=== PATIENT | female | born 1940 | race Caucasian/White ===

== ENCOUNTER 2017-05-28 13:56 | Inpatient (IN) | payer OTHER ==
[2017-05-28] MEDS: LASIX IVP SCH ×2 (15:45→20:21)
[2017-05-28] MEDS ORDERED: PROVENTIL NEB TX 0.083% 2.5MG/ 3ML ONE (15:59)
--- NOTE | 2017-05-28 16:09 | RAD ---
HISTORY: Shortness of breath, CHF, cough Study: Single view chest Comparison:None Findings: Single portable view is submitted. There is a left chest wall pacemaker/ICD. No infiltrate, effusion or pneumothorax identified. Heart size is within normal limits. There are calcifications at the aorti c arch. The soft tissues are unremarkable. IMPRESSION: 1. No acute cardiopulmonary abnormality. Reported By:
[2017-05-28] MEDS: PROVENTIL NEB TX 0.083% 2.5MG/ 3ML NEB SCH ×2 (16:12→21:55)
[2017-05-28 16:16] LABS: BLOOD UREA NITROGEN 29 mg/dL (7-18); CARBON DIOXIDE 34.9 mmol/L (21-32); CHLORIDE 104 mmol/L (98-107); CREATININE 1.46 mg/dL (0.55-1.02); SODIUM 141 mmol/L (136-145); TROPONIN I 0.02 ng/mL (0-1.5); eGFR BLACK RACES 45 (>60); eGFR NON BLACK RACES 37 (>60)
[2017-05-28 16:22] VITALS: BMI 41.3
[2017-05-28 16:22] LABS: ALANINE AMINOTRANSFERASE 29 Units/L (12-78); ALBUMIN 2.9 g/dL (3.4-5.0); ALKALINE PHOSPHATASE 55 Units/L (46-116); ASPARTATE AMINO TRANSFERASE 15 Units/L (15-37); CKMB % 3.3 % (<4); COR CA(FOR HYPOALB) 8.9 mg/dL (8.5-10.1); CREATINE KINASE 43 Units/L (26-192); CREATINE KINASE MB 1.4 ng/mL (0-4.0); TOTAL PROTEIN 6.9 g/dL (6.4-8.2)
[2017-05-28 16:57] LABS: BILIRUBIN,URINE NEGATIVE (NEGATIVE); BLOOD/HEMOGLOBIN,URINE 1+ (NEGATIVE); GLUCOSE, URINE NEGATIVE (NEGATIVE); KETONES,URINE NEGATIVE (NEGATIVE); LEUKOCYTE ESTERASE ,URINE 3+ (NEGATIVE); NITRITES,URINE NEGATIVE (NEGATIVE); PROTEIN,URINE NEGATIVE (NEGATIVE); UROBILINOGEN,URINE NORMAL (NORMAL)
[2017-05-28 17:06] LABS: APPEARANCE,URINE HAZY (CLEAR); COLOR,URINE YELLOW (YELLOW)
[2017-05-28 17:07] LABS: BACTERIA,URINE TRACE /HPF (NEGATIVE); RBC,URINE 0-2 /HPF (NONE SEEN); SQUAMOUS EPITHELIAL CELL,UR RARE /HPF (NEGATIVE)
[2017-05-28] MEDS ORDERED: BENTYL CAP 10 MG PO PRN (18:42)
[2017-05-28] MEDS ORDERED: ALENDRONATE SODIUM 70 MG PO SCH (18:45)
[2017-05-28] MEDS: ROCEPHIN VIAL 1 GM 1 GM in NS 100 ML IV + SPIKE MINIBAG* 100 ML IV SCH (19:42)
[2017-05-28] MEDS: ASPIRIN EC 81 MG PO SCH (19:42)
[2017-05-28] MEDS: FLONASE NASAL SPRAY ENOSTRIL SCH (20:20)
[2017-05-28] MEDS: NS 100 ML IV 100 ML IV SCH (20:20)
[2017-05-28] MEDS: K-DUR TAB 20 MEQ PO SCH (20:21)
[2017-05-28] MEDS: NEURONTIN CAP 100 MG PO SCH (20:22)
[2017-05-28] MEDS: REQUIP PO SCH (20:22)
[2017-05-28] MEDS: ZOCOR TAB 40 MG PO SCH (20:23)
[2017-05-28] MEDS: FLEXERIL TAB 10 MG PO SCH (20:23)
[2017-05-28] MEDS: RESTORIL CAP 30 MG PO SCH (20:25)
[2017-05-28] MEDS ORDERED: [UNRECOGNIZED DRUG - OTHER] PO SCH (21:00)
[2017-05-28] MEDS: CREON PO SCH (21:00)
[2017-05-28] MEDS ORDERED: ROPINIROLE HCL 3 MG PO SCH (21:00)
[2017-05-28] MEDS ORDERED: AMYLASE PO SCH (21:00)
[2017-05-28] MEDS ORDERED: PROTEASE PO SCH (21:00)
[2017-05-28] MEDS ORDERED: LIPASE PO SCH (21:00)
[2017-05-28 21:41] LABS: CKMB % 2.6 % (<4); CREATINE KINASE 42 Units/L (26-192); CREATINE KINASE MB 1.1 ng/mL (0-4.0); TROPONIN I < 0.02 ng/mL (0-1.5)
[2017-05-28] MEDS: PULMICORT NEB TX 0.5 MG NEB SCH (21:55)
[2017-05-29 01:35] LABS: CKMB % 2.8 % (<4); CREATINE KINASE 40 Units/L (26-192); CREATINE KINASE MB 1.1 ng/mL (0-4.0); TROPONIN I < 0.02 ng/mL (0-1.5)
[2017-05-29] MEDS: NS 100 ML IV 100 ML IV SCH ×5 (05:26→16:10)
[2017-05-29 05:28] LABS: BASOPHILS # (AUTO) 0.1 X10^3/uL (0.0-0.1); EOSINOPHILS # (AUTO) 0.3 x10^3/uL (0.0-0.2); EOSINOPHILS % (AUTO) 4.9 % (0.9-2.9); HEMATOCRIT 30.5 % (36.0-47.0); HEMOGLOBIN 10.2 g/dL (12.0-16.0); LYMPHOCYTES # (AUTO) 2.5 X10^3/uL (1.3-2.9); LYMPHOCYTES % (AUTO) 35.1 % (21.0-51.0); MEAN CORPUSCULAR HEMOGLOBIN 29.6 pg (27.0-34.0); MEAN CORPUSCULAR HGB CONC 33.5 g/dL (33.0-35.0); MEAN CORPUSCULAR VOLUME 88.3 fL (80.0-100.0); MEAN PLATELET VOLUME 7.4 fL (7.4-11.0); MONOCYTES # (AUTO) 0.6 x10^3/uL (0.3-0.8); MONOCYTES % (AUTO) 8.9 % (0.0-13.0); NEUTROPHILS # (AUTO) 3.5 x10^3/uL (2.2-4.8); NEUTROPHILS % (AUTO) 50.1 % (42.0-75.0); PLATELET COUNT 198 X10^3/uL (150.0-450.0); RED BLOOD COUNT 3.45 X10^6/uL (3.5-5.4); RED CELL DISTRIBUTION WIDTH 13.8 % (11.6-16.5); WHITE BLOOD COUNT 7.1 X10^3/uL (3.6-10.0)
[2017-05-29 05:41] LABS: ALBUMIN 2.9 g/dL (3.4-5.0); CALCIUM 8.1 mg/dL (8.5-10.1); CARBON DIOXIDE 36.6 mmol/L (21-32); CREATININE 1.33 mg/dL (0.55-1.02); TOTAL PROTEIN 6.9 g/dL (6.4-8.2)
[2017-05-29] MEDS ORDERED: K-LYTE EFFERVESCENT PO PRN (05:50)
[2017-05-29] MEDS ORDERED: K-RIDER 10 MEQ/NS 100 ML 10 MEQ/100 ML BAG IV PRN (05:50)
[2017-05-29] MEDS ORDERED: POTASSIUM CHLORIDE LIQ 20 MEQ UDC PO PRN (05:50)
[2017-05-29] MEDS: POTASSIUM CHL 60 MEQ/NS 0.45% 500 ML IV PRN (06:28)
--- NOTE | 2017-05-29 07:46 | RAD ---
HISTORY: Shortness of breath Study: Chest AP portable Comparison: 05/28/2017 Findings: There is a pacemaker present on the left. The heart is within normal limits in size. The lilliam are nor mal. The lung sofia are clear. The bony thorax is unremarkable. IMPRESSION: No significant abnormality identified Reported By:
[2017-05-29] MEDS ORDERED: ALLEGRA ONE (08:18)
[2017-05-29] MEDS: FLONASE NASAL SPRAY ENOSTRIL SCH ×2 (08:24→21:29)
[2017-05-29] MEDS: ROCEPHIN VIAL 1 GM 1 GM in NS 100 ML IV + SPIKE MINIBAG* 100 ML IV SCH (08:25)
[2017-05-29] MEDS: CREON PO SCH ×2 (08:27→21:29)
[2017-05-29] MEDS: FLEXERIL TAB 10 MG PO SCH ×2 (08:28→21:25)
[2017-05-29] MEDS: ASPIRIN EC 81 MG PO SCH (08:28)
[2017-05-29] MEDS: SYNTHROID 25 mcg TAB PO SCH (08:28)
[2017-05-29] MEDS: ALLEGRA PO SCH (08:28)
[2017-05-29] MEDS: FERROUS GLUCONATE PO SCH (08:29)
[2017-05-29] MEDS: PROTONIX TAB 40 MG PO SCH (08:29)
[2017-05-29] MEDS: LASIX IVP SCH ×2 (08:30→21:26)
[2017-05-29] MEDS: K-DUR TAB 20 MEQ PO SCH ×2 (08:31→21:25)
[2017-05-29] MEDS: ZAROXOYLN PO SCH (08:37)
[2017-05-29] MEDS: PROVENTIL NEB TX 0.083% 2.5MG/ 3ML NEB SCH ×4 (08:59→21:51)
[2017-05-29] MEDS: PULMICORT NEB TX 0.5 MG NEB SCH ×2 (08:59→21:51)
[2017-05-29] MEDS ORDERED: PATIENT'S HOME MEDICATION (Ferrous Sulfate [Ferrous Sulfate] 325 MG) PO SCH (09:00)
[2017-05-29] MEDS ORDERED: XOPENEX 1.25 MG/3 ML NEBULE NEB SCH (09:45)
[2017-05-29] MEDS ORDERED: NS 250 ML IV 250 ML IV ONE (10:34)
[2017-05-29] MEDS: NS 250 ML IV 250 ML IV SCH (10:40)
[2017-05-29] MEDS: SOLU-Medrol 40 MG VIAL IVP SCH ×3 (10:40→21:37)
[2017-05-29] MEDS: FORTAZ or TAZICEF INJ 1 GM in NS 100 ML IV + SPIKE MINIBAG* 100 ML IV SCH ×3 (10:41→21:37)
[2017-05-29] MEDS: MUCINEX DM PO SCH ×2 (10:43→21:27)
[2017-05-29] MEDS: LEVAQUIN PREMIX IV 750 MG 750 MG/150 ML BAG IV SCH (11:36)
--- NOTE | 2017-05-29 12:51 | DR.UPDATE ---
H&P Update History and Physical Update: WAS SEEN IN THE OFFICE TODAY. A H&P WAS COMPLETED PRIOR TO ADMISSION. PATIENT HAS BEEN SEEN AND EXAMINED WITH NO CHANGES NOTED TO H&P. Changes noted: NO Yes with the following:
--- NOTE | 2017-05-29 13:07 | PCM.PROG ---
Progress Note - Progress Note for Day of Date: 05/29/17 - Subjective Subjective: WAS ADMITTED FOR TREATMENT OF CONGESTIVE HEART FAILURE AND A URINARY TRACT INFECTION. TODAY, SHE IS ALERT AND ORIENTED, SITTING UP IN BED ON MORNING ROUNDS. SHE IS NOTED WITH COMPLAINTS OF A NON-PRODUCTIVE COUGH AND SHORTNESS OF BREATH. ON EXAMINATION, HEART IS REGULAR IN RATE AND RHYTHM. BILATERAL LUNGS ARE NOTED WITH EXPIRATORY WHEEZING AND RALES. SHE IS CURRENTLY UTILIZING OXYGEN VIA NASAL CANNULA AT 2L/MIN. ABDOMEN IS ROUND, SOFT, AND NON- TENDER WITH NORMAL BOWEL SOUNDS NOTED IN ALL QUADRANTS. THERE IS 1+ PITTING EDEMA NOTED TO BILATERAL LOWER EXTREMITIES. NORMAL RANGE OF MOTION NOTED. HER VITALS THIS MORNING ARE 98.2-90-23-99%-149/67. LABS WERE OBTAINED. ABNORMAL LAB VALUES INCLUDE THE FOLLOWING: RBC 3.45, HGB 10.2, HCT 30.5, POTASSIUM 2.7, CARBON DIOXIDE 36.6, BUN 27, CREATININE 1.33, GLUCOSE 119, CALCIUM 8.1, MAGNESIUM 1.5, AST 14, ALBUMIN 2.9. A URINALYSIS OBTAINED ON ADMISSION REVEALED WBC 10-20, RBC 0-2, LEUKOCYTES 3+, BACTERIA TRACE. A URINE CULTURE IS PENDING. CARDIAC ENZYMES AND EKGS HAVE BEEN WITHIN NORMAL LIMITS. TODAY, WE PLAN TO DISCONTINUE ROCEPHIN AND START FORTAZ 1GM IV Q8H, AND LEVAQUIN 750MG IV DAILY. WE WILL ALSO START MUCINEX DM 1 TABLET BID, SOLU-MEDROL 20MG IV Q8H, AND CONTINUE WITH RESPIRATORY TREATMENTS FOR TREATMENT OF ACUTE BRONCHITIS. WE PLAN TO FOLLOW UP WITH AM LABS AND CHEST XRAY AND CONTINUE TO MONITOR PATIENT. - Past Medical Family Social History Past Med/Fam/Surg Hx: No changes since H&P Allergies: Allergies No Known Allergies Allergy (Verified 05/28/17 16:06) - Review of Systems ROS: No change since H&P - Vital Signs and I&O's Vital Signs: Temperature 98.1 F Pulse Rate [Apical] 86 Pulse Rate 82 Respiratory Rate 20 Blood Pressure [Right Arm] 140/70 Blood Pressure 145/72 O2 Sat by Pulse Oximetry 98 Intake and Output: Intake & Output 05/27/17 05/28/17 05/29/17 05/30/17 11:59 11:59 11:59 11:59 Intake Total 1905 Output Total 3650 Balance -1745 - Physical Exam Oriented: Normal Eyes: Normal Ear: Normal Nose: Normal Throat: Normal Respiratory: Generalized, Wheezes, Rhonchi Cardiovascular: Normal, Edema. negative: S3, S4, Murmur : Normal Auscultation: Bowel Sounds: Normal Palpation: Normal Tenderness: Normal Skin: Normal Musculoskeletal: Normal Psychiatric: Normal Mood Description: Calm Affect: Normal Speech Pattern: Clear, Appropriate - Laboratory and Diagnostics Result Diagrams: 05/29/17 04:02 05/29/17 04:02 Labs: 05/29/17 10:37 Sputum - Expectorated Sputum - Final 05/28/17 16:54 Urine,Clean Catch Urine Culture - Preliminary Laboratory WBC 7.1 X10^3/uL (3.6-10.0) 05/29/17 04:02 RBC 3.45 X10^6/uL (3.5-5.4) L 05/29/17 04:02 Hgb 10.2 g/dL (12.0-16.0) L 05/29/17 04:02 Hct 30.5 % (36.0-47.0) L 05/29/17 04:02 MCV 88.3 fL (80.0-100.0) 05/29/17 04:02 MCH 29.6 pg (27.0-34.0) 05/29/17 04:02 MCHC 33.5 g/dL (33.0-35.0) 05/29/17 04:02 RDW 13.8 % (11.6-16.5) 05/29/17 04:02 Plt Count 198 X10^3/uL (150.0-450.0) 05/29/17 04:02 MPV 7.4 fL (7.4-11.0) 05/29/17 04:02 Neut % (Auto) 50.1 % (42.0-75.0) 05/29/17 04:02 Lymph % (Auto) 35.1 % (21.0-51.0) 05/29/17 04:02 [place] % (Auto) 8.9 % (0.0-13.0) 05/29/17 04:02 Eos % (Auto) 4.9 % (0.9-2.9) H 05/29/17 04:02 Baso % (Auto) 1.0 % (0.2-1.0) 05/29/17 04:02 Neut # (Auto) 3.5 x10^3/uL (2.2-4.8) 05/29/17 04:02 Lymph # (Auto) 2.5 X10^3/uL (1.3-2.9) 05/29/17 04:02 [place] # (Auto) 0.6 x10^3/uL (0.3-0.8) 05/29/17 04:02 Eos # (Auto) 0.3 x10^3/uL (0.0-0.2) H 05/29/17 04:02 Baso # (Auto) 0.1 X10^3/uL (0.0-0.1) 05/29/17 04:02 Absolute Nucleated RBC 0.1 /100WBC 05/29/17 04:02 Sodium 143 mmol/L (136-145) 05/29/17 04:02 Corrected Sodium 143 mmol/L (136-145) 05/29/17 04:02 Potassium 2.7 mmol/L (3.5-5.1) L* 05/29/17 04:02 Chloride 100 mmol/L (98-107) 05/29/17 04:02 Carbon Dioxide 36.6 mmol/L (21-32) H 05/29/17 04:02 BUN 27 mg/dL (7-18) H 05/29/17 04:02 Creatinine 1.33 mg/dL (0.55-1.02) H 05/29/17 04:02 Est GFR (MDRD) Af Amer 50 (>60) L 05/29/17 04:02 Est GFR (MDRD) Non-Af 41 (>60) L 05/29/17 04:02 Glucose 119 mg/dL (65-99) H 05/29/17 04:02 Calcium 8.1 mg/dL (8.5-10.1) L 05/29/17 04:02 Corrected Calcium 9.0 mg/dL (8.5-10.1) 05/29/17 04:02 Magnesium 1.5 mg/dL (1.7-2.9) L 05/29/17 04:02 Total Bilirubin 0.30 mg/dL (0.2-1.0) 05/29/17 04:02 AST 14 Units/L (15-37) L 05/29/17 04:02 ALT 26 Units/L (12-78) 05/29/17 04:02 Alkaline Phosphatase 55 Units/L (46-116) 05/29/17 04:02 Creatine Kinase 40 Units/L (26-192) 05/29/17 00:50 CK-MB (CK-2) 1.1 ng/mL (0-4.0) 05/29/17 00:50 CK/CKMB % Calc 2.8 % (<4) 05/29/17 00:50 Troponin I < 0.02 ng/mL (0-1.5) 05/29/17 00:50 Total Protein 6.9 g/dL (6.4-8.2) 05/29/17 04:02 Albumin 2.9 g/dL (3.4-5.0) L 05/29/17 04:02 Globulin 4.0 g/dL (2.5-4.5) 05/29/17 04:02 Albumin/Globulin Ratio 0.7 Ratio (1.1-2.1) L 05/29/17 04:02 Specimen Type Clean catch urine 05/28/17 16:54 Urine Color Yellow (YELLOW) 05/28/17 16:54 Urine Appearance Hazy (CLEAR) 05/28/17 16:54 Urine pH 7.0 (5.0 - 8.0) 05/28/17 16:54 Ur Specific Archie 1.005 (1.000-1.030) 05/28/17 16:54 Urine Protein Negative (NEGATIVE) 05/28/17 16:54 Urine Glucose (UA) Negative (NEGATIVE) 05/28/17 16:54 Urine Ketones Negative (NEGATIVE) 05/28/17 16:54 Urine Occult Blood 1+ (NEGATIVE) 05/28/17 16:54 Urine Nitrite Negative (NEGATIVE) 05/28/17 16:54 Urine Bilirubin Negative (NEGATIVE) 05/28/17 16:54 Urine Urobilinogen Normal (NORMAL) 05/28/17 16:54 Ur Leukocyte Esterase 3+ (NEGATIVE) 05/28/17 16:54 Urine RBC 0-2 /HPF (NONE SEEN) 05/28/17 16:54 Urine WBC 10-20 /HPF (NONE SEEN) 05/28/17 16:54 Ur Squamous Epith Cells Rare /HPF (NEGATIVE) 05/28/17 16:54 Urine Bacteria Trace /HPF (NEGATIVE) 05/28/17 16:54 Ur Culture Indicated? No/not indicated 05/28/17 16:54 - Plan (1) Acute bronchitis Status: Acute Qualifiers: Bronchitis organism: unspecified organism Qualified Code(s): J20.9 - Acute bronchitis, unspecified Plan: FORTAZ, LEVAQUIN, RESPIRATORY TREATMENTS, SUPPLEMENTAL OXYGEN, CONTINUE TO MONITOR (2) Congestive heart failure Status: Acute Qualifiers: Heart failure type: unspecified Heart failure chronicity: acute on chronic Qualified Code(s): I50.9 - Heart failure, unspecified Plan: LASIX 20MG IV BID, SUPPLEMENTAL OXYGEN, CONTINUE TO MONITOR
[2017-05-29] MEDS: MAGNESIUM SULFATE 1 GM/100 mL PREMIX 1 GM/100 ML BAG IV PRN ×2 (13:27→14:49)
[2017-05-29] MEDS: POTASSIUM CHL 40 MEQ/NS 0.45% 500 ML IV PRN (16:39)
[2017-05-29] MEDS: COREG TAB 25 MG PO SCH (21:24)
[2017-05-29] MEDS: NEURONTIN CAP 100 MG PO SCH (21:26)
[2017-05-29] MEDS: RESTORIL CAP 30 MG PO SCH (21:27)
[2017-05-29] MEDS: PEPCID TAB 20 MG PO SCH (21:27)
[2017-05-29] MEDS: REQUIP PO SCH (21:27)
[2017-05-29] MEDS: ZOCOR TAB 40 MG PO SCH (21:27)
[2017-05-30] MEDS: NS 100 ML IV 100 ML IV SCH ×7 (05:05→23:32)
[2017-05-30] MEDS: FORTAZ or TAZICEF INJ 1 GM in NS 100 ML IV + SPIKE MINIBAG* 100 ML IV SCH ×3 (05:24→21:24)
[2017-05-30] MEDS: SOLU-Medrol 40 MG VIAL IVP SCH ×3 (05:24→21:25)
[2017-05-30] MEDS: NS 250 ML IV 250 ML IV SCH ×3 (05:25→13:06)
[2017-05-30 06:09] LABS: BASOPHILS % (AUTO) 0.1 % (0.2-1.0); HEMATOCRIT 32.8 % (36.0-47.0); HEMOGLOBIN 11.1 g/dL (12.0-16.0); LYMPHOCYTES # (AUTO) 1.6 X10^3/uL (1.3-2.9); LYMPHOCYTES % (AUTO) 10.3 % (21.0-51.0); MEAN CORPUSCULAR HEMOGLOBIN 29.5 pg (27.0-34.0); MEAN CORPUSCULAR HGB CONC 33.8 g/dL (33.0-35.0); MEAN CORPUSCULAR VOLUME 87.4 fL (80.0-100.0); MONOCYTES # (AUTO) 0.8 x10^3/uL (0.3-0.8); MONOCYTES % (AUTO) 5.4 % (0.0-13.0); NEUTROPHILS # (AUTO) 12.7 x10^3/uL (2.2-4.8); NEUTROPHILS % (AUTO) 84.2 % (42.0-75.0); PLATELET COUNT 220 X10^3/uL (150.0-450.0); RED BLOOD COUNT 3.76 X10^6/uL (3.5-5.4); RED CELL DISTRIBUTION WIDTH 13.9 % (11.6-16.5); WHITE BLOOD COUNT 15.1 X10^3/uL (3.6-10.0)
[2017-05-30 06:42] LABS: ALBUMIN 3.1 g/dL (3.4-5.0); CARBON DIOXIDE 32.8 mmol/L (21-32); COR CA(FOR HYPOALB) 8.7 mg/dL (8.5-10.1); CREATININE 1.24 mg/dL (0.55-1.02); MAGNESIUM 2.2 mg/dL (1.7-2.9); TOTAL PROTEIN 7.6 g/dL (6.4-8.2)
--- NOTE | 2017-05-30 06:43 | RAD ---
History: Shortness of breath and cough Study: AP chest Comparison: Yesterday Findings: The heart size is normal with unchanged intact defibrillator wires and pacer wires via the left subclavian vein. The lungs are clear. There is no edema or effusion. Impression: No acute cardiopulmonary disease Reported By:
[2017-05-30] MEDS: POTASSIUM CHL 60 MEQ/NS 0.45% 500 ML IV PRN (07:16)
[2017-05-30] MEDS: PULMICORT NEB TX 0.5 MG NEB SCH ×2 (08:20→20:15)
[2017-05-30] MEDS: PROVENTIL NEB TX 0.083% 2.5MG/ 3ML NEB SCH ×4 (08:20→20:15)
[2017-05-30] MEDS ORDERED: ALLEGRA ONE (08:33)
[2017-05-30] MEDS: LEVAQUIN PREMIX IV 750 MG 750 MG/150 ML BAG IV SCH (08:44)
[2017-05-30] MEDS: K-DUR TAB 20 MEQ PO SCH ×2 (08:45→23:28)
[2017-05-30] MEDS: ALLEGRA PO SCH (08:45)
[2017-05-30] MEDS: SYNTHROID 25 mcg TAB PO SCH (08:45)
[2017-05-30] MEDS: LASIX IVP SCH (08:45)
[2017-05-30] MEDS: MUCINEX DM PO SCH ×2 (08:45→21:33)
[2017-05-30] MEDS: ZAROXOYLN PO SCH (08:45)
[2017-05-30] MEDS: FERROUS GLUCONATE PO SCH (08:46)
[2017-05-30] MEDS: COREG TAB 25 MG PO SCH ×2 (08:46→21:25)
[2017-05-30] MEDS: ASPIRIN EC 81 MG PO SCH (08:46)
[2017-05-30] MEDS: PEPCID TAB 20 MG PO SCH ×2 (08:46→21:24)
[2017-05-30] MEDS: COZAAR PO SCH (08:46)
[2017-05-30] MEDS: FLEXERIL TAB 10 MG PO SCH ×2 (08:46→21:25)
[2017-05-30] MEDS: PROTONIX TAB 40 MG PO SCH (08:46)
[2017-05-30] MEDS: FLONASE NASAL SPRAY ENOSTRIL SCH (08:49)
[2017-05-30] MEDS: CREON PO SCH ×2 (09:00→22:00)
[2017-05-30] MEDS ORDERED: PATIENT'S HOME MEDICATION (Losartan Potassium [Losartan Potassium] 1 TAB) PO SCH (09:00)
[2017-05-30] MEDS ORDERED: TYLENOL 325 MG TAB PO PRN (16:24)
[2017-05-30] MEDS: ZOCOR TAB 40 MG PO SCH (21:25)
[2017-05-30] MEDS: NEURONTIN CAP 100 MG PO SCH (21:25)
[2017-05-30] MEDS: RESTORIL CAP 30 MG PO SCH (21:25)
[2017-05-30] MEDS: REQUIP PO SCH (21:25)
[2017-05-30] MEDS: POTASSIUM CHL 40 MEQ/NS 0.45% 500 ML IV PRN (23:26)
[2017-05-31] MEDS: NS 250 ML IV 250 ML IV SCH (02:13)
[2017-05-31] MEDS: NS 100 ML IV 100 ML IV SCH ×2 (03:00→09:47)
[2017-05-31 05:25] LABS: BASOPHILS % (AUTO) 0.1 % (0.2-1.0); HEMATOCRIT 30.7 % (36.0-47.0); HEMOGLOBIN 10.3 g/dL (12.0-16.0); LYMPHOCYTES # (AUTO) 1.4 X10^3/uL (1.3-2.9); LYMPHOCYTES % (AUTO) 7.1 % (21.0-51.0); MEAN CORPUSCULAR HEMOGLOBIN 29.5 pg (27.0-34.0); MEAN CORPUSCULAR HGB CONC 33.6 g/dL (33.0-35.0); MEAN CORPUSCULAR VOLUME 87.8 fL (80.0-100.0); MEAN PLATELET VOLUME 7.1 fL (7.4-11.0); MONOCYTES # (AUTO) 0.9 x10^3/uL (0.3-0.8); MONOCYTES % (AUTO) 4.5 % (0.0-13.0); NEUTROPHILS # (AUTO) 17.6 x10^3/uL (2.2-4.8); NEUTROPHILS % (AUTO) 88.3 % (42.0-75.0); PLATELET COUNT 234 X10^3/uL (150.0-450.0); RED CELL DISTRIBUTION WIDTH 14.3 % (11.6-16.5); WHITE BLOOD COUNT 19.9 X10^3/uL (3.6-10.0)
[2017-05-31 05:32] LABS: ALBUMIN 2.8 g/dL (3.4-5.0); CALCIUM 7.3 mg/dL (8.5-10.1); CARBON DIOXIDE 32.2 mmol/L (21-32); COR CA(FOR HYPOALB) 8.3 mg/dL (8.5-10.1); CREATININE 1.3 mg/dL (0.55-1.02); TOTAL PROTEIN 6.9 g/dL (6.4-8.2)
[2017-05-31] MEDS: FORTAZ or TAZICEF INJ 1 GM in NS 100 ML IV + SPIKE MINIBAG* 100 ML IV SCH ×2 (06:15→15:24)
[2017-05-31] MEDS: SOLU-Medrol 40 MG VIAL IVP SCH ×2 (06:16→15:24)
--- NOTE | 2017-05-31 07:01 | RAD ---
History: Shortness of breath and cough Study: AP chest Comparison: Yesterday Findings: There is limited inspiration of grossly clear lungs. The heart size is prominent with intac t defibrillator wires via the left subclavian vein. There is no obvious pleural effusion or focal martha g consolidation. Impression: No definite acute cardiopulmonary disease demonstrated Reported By:
[2017-05-31] MEDS: PULMICORT NEB TX 0.5 MG NEB SCH (08:45)
[2017-05-31] MEDS: PROVENTIL NEB TX 0.083% 2.5MG/ 3ML NEB SCH ×2 (08:45→12:15)
[2017-05-31] MEDS ORDERED: ALLEGRA ONE (09:14)
[2017-05-31] MEDS: FLONASE NASAL SPRAY ENOSTRIL SCH ×2 (09:29→09:30)
[2017-05-31] MEDS: ZAROXOYLN PO SCH (09:30)
[2017-05-31] MEDS: ALLEGRA PO SCH (09:31)
[2017-05-31] MEDS: MUCINEX DM PO SCH (09:31)
[2017-05-31] MEDS: FLEXERIL TAB 10 MG PO SCH (09:31)
[2017-05-31] MEDS: COREG TAB 25 MG PO SCH (09:31)
[2017-05-31] MEDS: PEPCID TAB 20 MG PO SCH (09:31)
[2017-05-31] MEDS: COZAAR PO SCH (09:31)
[2017-05-31] MEDS: K-DUR TAB 20 MEQ PO SCH (09:32)
[2017-05-31] MEDS: SYNTHROID 25 mcg TAB PO SCH (09:32)
[2017-05-31] MEDS: FERROUS GLUCONATE PO SCH (09:32)
[2017-05-31] MEDS: PROTONIX TAB 40 MG PO SCH (09:32)
[2017-05-31] MEDS: CREON PO SCH (09:32)
[2017-05-31] MEDS: ASPIRIN EC 81 MG PO SCH (09:32)
[2017-05-31] MEDS: LEVAQUIN PREMIX IV 750 MG 750 MG/150 ML BAG IV SCH (09:35)
[2017-05-31 14:18] VITALS: BP 134/60
== END 2017-05-31 14:35 | disposition home or self-care (01) | DRG 292 ==
LOC: UNDOADMIN 13:56 → ICU 13:56
PROVIDERS: ADMIT Internal Medicine; ATTEND Internal Medicine
DX: I50.9 Heart failure, unspecified (principal); J20.8 Acute bronchitis due to other specified organisms; N39.0 Urinary tract infection, site not specified; B96.29 Other Escherichia coli [E. coli] as the cause of diseases classified elsewhere; R06.02 Shortness of breath; R07.89 Other chest pain; Z95.0 Presence of cardiac pacemaker; E03.8 Other specified hypothyroidism; R60.0 Localized edema
CPT/HCPCS: 36415; 71045; 80053; 81001; 82550; 82553; 83735; 84132; 84484; 85025; 87070; 87086; 87088; 87186; 87205; 93005; 94640; A4216; A4222; J0696; J0713; J1940; J1956; J2920; J7613; J7626

== ENCOUNTER 2018-02-12 10:10 | Inpatient (IN) ==
[2018-02-12 10:23] VITALS: BMI 43.1
--- NOTE | 2018-02-12 10:41 | DR.DIZZY ---
HPI Time seen Time Seen by Provider: 02/12/18 10:19 PCP Primary Care Physician: dr ortez and dr yoo Complaint Chief Complaint Doctor Comments: Patient presents with complaint of dizziness and weakness for few days. She has been seen by ophthalmology for growth behind right eye. She will be having surgery in a few weeks. She admits to headache fo r several months. She has had a pacemaker/defibr for for atleast five years. Chief Complaint:: patient stated she has been having a headache with dizzy for 2 weeks. ems stated family stated she had a doctors appt today with her pcp Source History Provided: Patient and EMS Mode of Arrival Mode of Arrival: EMS Timing Onset of Chief Complaint: 01/29/18 Context Stroke Symptoms: None PMH PMH Past Medical History: Yes Past Surgical History: Yes Surgical History: Unknown Family History History of Family Medical Conditions: Yes Family Medical History: Diabetes Mellitus, Coronary Artery Disease and Hypertension Social History Does patient currently use any type of tobacco product: No Have you used tobacco products in the last 12 months: No Type of Tobacco Use: None Does any household member use tobacco: No Alcohol Use: Rarely Do you use any recreational Drugs:: No Lives With: Family Lives Where: Home infectious screening In the last 2 months have you had wt loss of >10#?: NO Have you had fever, night sweats or hemotysis?: No Have you traveled outside the country in the last 6 months?: No Isolation: Standard PE Vital Signs Vitals: Temperature 98.1 F Pulse Rate [Left Brachial] 70 Pulse Rate 71 Respiratory Rate 17 Blood Pressure [Right Arm] 97/50 Blood Pressure 90/52 O2 Sat by Pulse Oximetry 94 General Limitations: No Limitations General Appearance: Alert, In No Apparent Distress and Appears Intoxicated Head Head Exam: Normal Inspection, Atraumatic and Normocephalic Eyes Eye exam: Normal Appearance, PERRL and EOMI Pupils: Regular, Round: Bilateral Sclera/Conjunctival: Normal Inspection: Bilateral Anterior Chamber: Normal Inspection: Bilateral Posterior Chamber: Deferred: Bilateral ENT ENT Exam: Normal Exam and Normal Oropharynx Neck Neck Exam: Normal Inspection and Full ROM Chest Chest Inspection: Normal Inspection and Symmetric Chest Wall Rise Respiratory Respiratory Exam: Normal Lung Sounds Bilat and Accessory Muscle Use Respiratory Exam: Bilateral: Clear to Auscultation Cardiovascular Cardiovascular Exam: Regular Rate and Normal Rhythm Abdominal Exam Abdominal Exam: Normal Inspection and Normal Bowel Sounds Abdominal Tenderness: RUQ, RLQ and LUQ Rectal Rectal Exam: Deferred Extremeties Extremities Exam: Normal Inspection and Full ROM Back Back Exam: Normal Inspection and Full ROM Neurologic Neurological Exam: Alert, Oriented X3 and CN II-XII Intact Patient Oriented To: Person Cranial Nerve Exam: EOM Function (II, III, IV, ): Right Abnormal Cerebellar Function: Normal Gait Motor Strength - LUE: 5/5 Motor Strength - RUE: 4/5 Motor Strength - LLE: 4/5 Psychiatric Psychiatric Exam: Normal Affect and Normal Mood Skin Skin Exam: Warm, Dry and Intact COURSE Consultation Called: 11:30 Consultation Comments: Dr. Dumont agreed to admit for further evaluation and treatment ROR Labs Reviewed Laboratory Results Reviewed?: Yes Result Diagrams: 02/12/18 10:40 02/12/18 10:40 Laboratory: WBC 15.2 X10^3/uL (3.6-10.0) H 02/12/18 10:40 RBC 3.46 X10^6/uL (3.5-5.4) L 02/12/18 10:40 Hgb 10.3 g/dL (12.0-16.0) L 02/12/18 10:40 Hct 30.0 % (36.0-47.0) L 02/12/18 10:40 MCV 86.9 fL (80.0-100.0) 02/12/18 10:40 MCH 29.8 pg (27.0-34.0) 02/12/18 10:40 MCHC 34.3 g/dL (33.0-35.0) 02/12/18 10:40 RDW 13.6 % (11.6-16.5) 02/12/18 10:40 Plt Count 231 X10^3/uL (150.0-450.0) 02/12/18 10:40 MPV 6.8 fL (7.4-11.0) L 02/12/18 10:40 Neut % (Auto) 81.2 % (42.0-75.0) H 02/12/18 10:40 Lymph % (Auto) 8.9 % (21.0-51.0) L 02/12/18 10:40 [place] % (Auto) 8.9 % (0.0-13.0) 02/12/18 10:40 Eos % (Auto) 0.7 % (0.9-2.9) L 02/12/18 10:40 Baso % (Auto) 0.3 % (0.2-1.0) 02/12/18 10:40 Neut # (Auto) 12.4 x10^3/uL (2.2-4.8) H 02/12/18 10:40 Lymph # (Auto) 1.4 X10^3/uL (1.3-2.9) 02/12/18 10:40 [place] # (Auto) 1.4 x10^3/uL (0.3-0.8) H 02/12/18 10:40 Eos # (Auto) 0.1 x10^3/uL (0.0-0.2) 02/12/18 10:40 Baso # (Auto) 0.0 X10^3/uL (0.0-0.1) 02/12/18 10:40 Absolute Nucleated RBC 0.0 /100WBC 02/12/18 10:40 Sodium 124 mmol/L (136-145) L* 02/12/18 10:40 Corrected Sodium 125 mmol/L (136-145) L 02/12/18 10:40 Potassium 5.1 mmol/L (3.5-5.1) 02/12/18 10:40 Chloride 87 mmol/L (98-107) L 02/12/18 10:40 Carbon Dioxide 32.6 mmol/L (21-32) H 02/12/18 10:40 BUN 104 mg/dL (7-18) H 02/12/18 10:40 Creatinine 2.41 mg/dL (0.55-1.02) H 02/12/18 10:40 Est GFR (MDRD) Af Amer 25 (>60) L 02/12/18 10:40 Est GFR (MDRD) Non-Af 21 (>60) L 02/12/18 10:40 Glucose 134 mg/dL (65-99) H 02/12/18 10:40 Calcium 10.7 mg/dL (8.5-10.1) H 02/12/18 10:40 Corrected Calcium 12.0 mg/dL (8.5-10.1) H 02/12/18 10:40 Total Bilirubin 0.40 mg/dL (0.2-1.0) 02/12/18 10:40 AST 20 Units/L (15-37) 02/12/18 10:40 ALT 36 Units/L (12-78) 02/12/18 10:40 Alkaline Phosphatase 95 Units/L (46-116) 02/12/18 10:40 Creatine Kinase 43 Units/L (26-192) 02/12/18 10:40 CK-MB (CK-2) 1.2 ng/mL (0-4.0) 02/12/18 10:40 CK/CKMB % Calc 2.8 % (<4) 02/12/18 10:40 Troponin I < 0.02 ng/mL (0-1.5) 02/12/18 10:40 Total Protein 6.7 g/dL (6.4-8.2) 02/12/18 10:40 Albumin 2.4 g/dL (3.4-5.0) L 02/12/18 10:40 Globulin 4.3 g/dL (2.5-4.5) 02/12/18 10:40 Albumin/Globulin Ratio 0.6 Ratio (1.1-2.1) L 02/12/18 10:40 Other Results Comments: Left sided pacemaker/defibrillator is present with intact leads. Trachea is midline there is cardiomegaly with atherosclerotic calcification and uncoiling of the aortic arch. Mild pulmonary vascular congestion is seen without CHF,infiltrate,pleural fluid or pneumothorax. Osseous structures are intact. CT Brain:The ventricles are normal is size shape and position There are no areas of abnormal attenuation to suggest recent or remote CVA,hemorrhage, mass lesion, or extra axial fluid collection. The visualized sinuses are clear with the exception n of an air fluid level in the left maxillary sinus suggestive of acute left maxillary sinusitis. The calvarium is intact. XRAY XRAY Interpreted by: Radiologist Diagnosis Discharge Problem: Hyponatremia, Acute prerenal azotemia, Chronic left maxillary sinusitis
[2018-02-12 10:58] LABS: BASOPHILS % (AUTO) 0.3 % (0.2-1.0); EOSINOPHILS # (AUTO) 0.1 x10^3/uL (0.0-0.2); EOSINOPHILS % (AUTO) 0.7 % (0.9-2.9); HEMOGLOBIN 10.3 g/dL (12.0-16.0); LYMPHOCYTES # (AUTO) 1.4 X10^3/uL (1.3-2.9); LYMPHOCYTES % (AUTO) 8.9 % (21.0-51.0); MEAN CORPUSCULAR HEMOGLOBIN 29.8 pg (27.0-34.0); MEAN CORPUSCULAR HGB CONC 34.3 g/dL (33.0-35.0); MEAN CORPUSCULAR VOLUME 86.9 fL (80.0-100.0); MEAN PLATELET VOLUME 6.8 fL (7.4-11.0); MONOCYTES # (AUTO) 1.4 x10^3/uL (0.3-0.8); MONOCYTES % (AUTO) 8.9 % (0.0-13.0); NEUTROPHILS # (AUTO) 12.4 x10^3/uL (2.2-4.8); NEUTROPHILS % (AUTO) 81.2 % (42.0-75.0); PLATELET COUNT 231 X10^3/uL (150.0-450.0); RED BLOOD COUNT 3.46 X10^6/uL (3.5-5.4); RED CELL DISTRIBUTION WIDTH 13.6 % (11.6-16.5); WHITE BLOOD COUNT 15.2 X10^3/uL (3.6-10.0)
--- NOTE | 2018-02-12 11:07 | CT ---
HISTORY: Weakness, dizziness Study: CT head without contrast Comparison: None Technique: Axial noncontrast images with coronal and sagittal reformats. Dose reduction procedures were used with mA/kv adjusted for body size. Findings: The ventricles are normal in size shape and position. There are no areas of abnormal attenuation to suggest recent or remote CVA, hemorrhage, mass lesion, or extra-axial fluid collection. The visualized sinuses are clear with the exception of an air-fluid level in the left maxillary sinus suggestive of acute left maxillary sinusitis. The calvarium is intact. IMPRESSION: No significant intracranial abnormality Acute left maxillary sinusitis Reported By:
--- NOTE | 2018-02-12 11:08 | RAD ---
HISTORY: Dizziness, weakness. Study: Single-view chest, patient seated in wheelchair. Comparison: 05/31/2017. Findings: Left-sided pacemaker/defibrillator is present with intact leads. Trachea is midline there is cardiomegaly with atherosclerotic calcification and uncoiling of the aortic arch. Mild pulmonary vascular congestion is seen without CHF, infiltrate, pleural fluid or pneumothorax. Osseous structures are intact. IMPRESSION: Cardiomegaly with mild pulmonary vascular congestion. An acute process is not identified. Reported By:
[2018-02-12 11:11] LABS: ALANINE AMINOTRANSFERASE 36 Units/L (12-78); ALBUMIN 2.4 g/dL (3.4-5.0); ALKALINE PHOSPHATASE 95 Units/L (46-116); ASPARTATE AMINO TRANSFERASE 20 Units/L (15-37); BLOOD UREA NITROGEN 104 mg/dL (7-18); CALCIUM 10.7 mg/dL (8.5-10.1); CARBON DIOXIDE 32.6 mmol/L (21-32); CHLORIDE 87 mmol/L (98-107); CKMB % 2.8 % (<4); COR NA(FOR HYPERGLY) 125 mmol/L (136-145); CREATINE KINASE 43 Units/L (26-192); CREATINE KINASE MB 1.2 ng/mL (0-4.0); CREATININE 2.41 mg/dL (0.55-1.02); TOTAL PROTEIN 6.7 g/dL (6.4-8.2); TROPONIN I < 0.02 ng/mL (0-1.5); eGFR NON BLACK RACES 21 (>60)
[2018-02-12 11:12] LABS: SODIUM 124 mmol/L (136-145)
[2018-02-12] MEDS ORDERED: PROVENTIL NEB TX 0.083% 2.5MG/ 3ML NEB ONE (11:39)
[2018-02-12] MEDS ORDERED: DUONEB 0.5 MG/3 MG ONE (11:43)
[2018-02-12] MEDS ORDERED: ROCEPHIN VIAL 1 GRAM IVP ONE (11:51)
[2018-02-12] MEDS ORDERED: ROCEPHIN VIAL 1 GRAM ONE (11:57)
[2018-02-12] MEDS ORDERED: SODIUM CHL HYPERTONIC ** 3% ** 500 ML IV ONE (12:00)
[2018-02-12] MEDS ORDERED: PHARMACY CONSULT - DOSE _____ XX SCH (12:00)
[2018-02-12] MEDS ORDERED: DUONEB 0.5 MG/3 MG NEB ONE (12:17)
[2018-02-12] MEDS ORDERED: BENTYL CAP 10 MG PO PRN (12:59)
--- NOTE | 2018-02-12 14:07 | DR.DIZZY ---
HPI Time seen Time Seen by Provider: 02/12/18 10:19 PCP Primary Care Physician: dr ortez and dr yoo Complaint Chief Complaint:: patient stated she has been having a headache with dizzy for 2 weeks. ems stated family stated she had a doctors appt today with her pcp Source History Provided: Patient and EMS Mode of Arrival Mode of Arrival: EMS Timing Onset of Chief Complaint: 01/29/18 Context Stroke Symptoms: None PMH PMH Past Medical History: Yes Past Surgical History: Yes Surgical History: Unknown Family History History of Family Medical Conditions: Yes Family Medical History: Diabetes Mellitus, Coronary Artery Disease and Hypertension Social History Does patient currently use any type of tobacco product: No Have you used tobacco products in the last 12 months: No Type of Tobacco Use: None Does any household member use tobacco: No Alcohol Use: Rarely Do you use any recreational Drugs:: No Lives With: Family Lives Where: Home infectious screening In the last 2 months have you had wt loss of >10#?: NO Have you had fever, night sweats or hemotysis?: No Have you traveled outside the country in the last 6 months?: No Isolation: Standard PE Vital Signs Vitals: Temperature 98.1 F Pulse Rate [Left Brachial] 70 Pulse Rate 71 Respiratory Rate 17 Blood Pressure [Right Arm] 97/50 Blood Pressure 90/52 O2 Sat by Pulse Oximetry 94 General Limitations: No Limitations; negative Altered Mental Status General Appearance: Alert and In No Apparent Distress Head Head Exam: Normal Inspection, Atraumatic and Normocephalic Eyes Eye exam: Normal Appearance, PERRL and EOMI Pupils: Regular, Round: Bilateral Sclera/Conjunctival: Normal Inspection: Bilateral Anterior Chamber: Normal Inspection: Bilateral Posterior Chamber: Deferred: Bilateral ENT ENT Exam: Normal Exam and Normal Oropharynx Neck Neck Exam: Normal Inspection and Full ROM Chest Chest Inspection: Normal Inspection and Symmetric Chest Wall Rise Respiratory Respiratory Exam: Normal Lung Sounds Bilat; negative Accessory Muscle Use and Chest Wall Tenderness Respiratory Exam: Bilateral: Clear to Auscultation Cardiovascular Cardiovascular Exam: Regular Rate and Normal Rhythm Abdominal Exam Abdominal Exam: Normal Inspection, Normal Bowel Sounds and Soft Rectal Rectal Exam: Deferred Extremeties Extremities Exam: Normal Inspection and Full ROM Back Back Exam: Normal Inspection Neurologic Neurological Exam: Alert, Oriented X3 and CN II-XII Intact Cranial Nerve Exam: EOM Function (II, III, IV, ): Normal Motor Strength - LUE: 4/5 Motor Strength - RUE: 4/5 Motor Strength - LLE: 4/5 DTR: patellar (R): 1+ Psychiatric Psychiatric Exam: Normal Affect and Normal Mood Skin Skin Exam: Warm, Dry and Intact ROR Labs Reviewed Result Diagrams: 02/12/18 10:40 02/12/18 10:40 Laboratory: WBC 15.2 X10^3/uL (3.6-10.0) H 02/12/18 10:40 RBC 3.46 X10^6/uL (3.5-5.4) L 02/12/18 10:40 Hgb 10.3 g/dL (12.0-16.0) L 02/12/18 10:40 Hct 30.0 % (36.0-47.0) L 02/12/18 10:40 MCV 86.9 fL (80.0-100.0) 02/12/18 10:40 MCH 29.8 pg (27.0-34.0) 02/12/18 10:40 MCHC 34.3 g/dL (33.0-35.0) 02/12/18 10:40 RDW 13.6 % (11.6-16.5) 02/12/18 10:40 Plt Count 231 X10^3/uL (150.0-450.0) 02/12/18 10:40 MPV 6.8 fL (7.4-11.0) L 02/12/18 10:40 Neut % (Auto) 81.2 % (42.0-75.0) H 02/12/18 10:40 Lymph % (Auto) 8.9 % (21.0-51.0) L 02/12/18 10:40 [place] % (Auto) 8.9 % (0.0-13.0) 02/12/18 10:40 Eos % (Auto) 0.7 % (0.9-2.9) L 02/12/18 10:40 Baso % (Auto) 0.3 % (0.2-1.0) 02/12/18 10:40 Neut # (Auto) 12.4 x10^3/uL (2.2-4.8) H 02/12/18 10:40 Lymph # (Auto) 1.4 X10^3/uL (1.3-2.9) 02/12/18 10:40 [place] # (Auto) 1.4 x10^3/uL (0.3-0.8) H 02/12/18 10:40 Eos # (Auto) 0.1 x10^3/uL (0.0-0.2) 02/12/18 10:40 Baso # (Auto) 0.0 X10^3/uL (0.0-0.1) 02/12/18 10:40 Absolute Nucleated RBC 0.0 /100WBC 02/12/18 10:40 Sodium 124 mmol/L (136-145) L* 02/12/18 10:40 Corrected Sodium 125 mmol/L (136-145) L 02/12/18 10:40 Potassium 5.1 mmol/L (3.5-5.1) 02/12/18 10:40 Chloride 87 mmol/L (98-107) L 02/12/18 10:40 Carbon Dioxide 32.6 mmol/L (21-32) H 02/12/18 10:40 BUN 104 mg/dL (7-18) H 02/12/18 10:40 Creatinine 2.41 mg/dL (0.55-1.02) H 02/12/18 10:40 Est GFR (MDRD) Af Amer 25 (>60) L 02/12/18 10:40 Est GFR (MDRD) Non-Af 21 (>60) L 02/12/18 10:40 Glucose 134 mg/dL (65-99) H 02/12/18 10:40 Calcium 10.7 mg/dL (8.5-10.1) H 02/12/18 10:40 Corrected Calcium 12.0 mg/dL (8.5-10.1) H 02/12/18 10:40 Total Bilirubin 0.40 mg/dL (0.2-1.0) 02/12/18 10:40 AST 20 Units/L (15-37) 02/12/18 10:40 ALT 36 Units/L (12-78) 02/12/18 10:40 Alkaline Phosphatase 95 Units/L (46-116) 02/12/18 10:40 Creatine Kinase 43 Units/L (26-192) 02/12/18 10:40 CK-MB (CK-2) 1.2 ng/mL (0-4.0) 02/12/18 10:40 CK/CKMB % Calc 2.8 % (<4) 02/12/18 10:40 Troponin I < 0.02 ng/mL (0-1.5) 02/12/18 10:40 Total Protein 6.7 g/dL (6.4-8.2) 02/12/18 10:40 Albumin 2.4 g/dL (3.4-5.0) L 02/12/18 10:40 Globulin 4.3 g/dL (2.5-4.5) 02/12/18 10:40 Albumin/Globulin Ratio 0.6 Ratio (1.1-2.1) L 02/12/18 10:40 Diagnosis Discharge Problem: Hyponatremia, Acute prerenal azotemia, Chronic left maxillary sinusitis
[2018-02-12] MEDS ORDERED: DUONEB 0.5 MG/3 MG NEB PRN (17:03)
[2018-02-12] MEDS: TYLENOL 325 MG TAB PO PRN (19:06)
[2018-02-12] MEDS: FLEXERIL TAB 10 MG PO SCH (20:34)
[2018-02-12] MEDS: REQUIP PO SCH (20:34)
[2018-02-12] MEDS: COREG TAB 25 MG PO SCH (20:34)
[2018-02-12] MEDS: ZOCOR TAB 40 MG PO SCH (20:34)
[2018-02-12] MEDS: NEURONTIN CAP 100 MG PO SCH (20:34)
[2018-02-12] MEDS: RESTORIL CAP 30 MG PO SCH (20:34)
[2018-02-12] MEDS: FLONASE NASAL SPRAY ENOSTRIL SCH (20:34)
[2018-02-12] MEDS: CREON PO SCH ×2 (20:35→21:15)
[2018-02-12 20:54] LABS: BILIRUBIN,URINE NEGATIVE (NEGATIVE); BLOOD/HEMOGLOBIN,URINE 1+ (NEGATIVE); GLUCOSE, URINE NEGATIVE (NEGATIVE); KETONES,URINE NEGATIVE (NEGATIVE); LEUKOCYTE ESTERASE ,URINE 1+ (NEGATIVE); NITRITES,URINE NEGATIVE (NEGATIVE); PH,URINE 6.5 (5.0 - 8.0); PROTEIN,URINE NEGATIVE (NEGATIVE); UROBILINOGEN,URINE NORMAL (NORMAL)
[2018-02-12 21:09] LABS: APPEARANCE,URINE CLEAR (CLEAR); COLOR,URINE PALE YELLOW (YELLOW); RBC,URINE 0-2 /HPF (NONE SEEN)
[2018-02-12 21:10] LABS: BACTERIA,URINE NEGATIVE /HPF (NEGATIVE); RENAL EPITHELIAL CELLS,URINE FEW /HPF (NEGATIVE); SQUAMOUS EPITHELIAL CELL,UR FEW /HPF (NEGATIVE)
[2018-02-13] MEDS: TYLENOL 325 MG TAB PO PRN (01:42)
[2018-02-13 03:04] LABS: CKMB % 2.7 % (<4); CREATINE KINASE 37 Units/L (26-192); TROPONIN I < 0.02 ng/mL (0-1.5)
[2018-02-13 06:50] LABS: BASOPHILS # (AUTO) 0.1 X10^3/uL (0.0-0.1); BASOPHILS % (AUTO) 0.5 % (0.2-1.0); EOSINOPHILS # (AUTO) 0.1 x10^3/uL (0.0-0.2); EOSINOPHILS % (AUTO) 0.8 % (0.9-2.9); HEMOGLOBIN 9.9 g/dL (12.0-16.0); LYMPHOCYTES # (AUTO) 1.7 X10^3/uL (1.3-2.9); MEAN CORPUSCULAR HEMOGLOBIN 29.8 pg (27.0-34.0); MEAN CORPUSCULAR HGB CONC 34.2 g/dL (33.0-35.0); MEAN CORPUSCULAR VOLUME 87.1 fL (80.0-100.0); MEAN PLATELET VOLUME 6.9 fL (7.4-11.0); MONOCYTES # (AUTO) 1.4 x10^3/uL (0.3-0.8); MONOCYTES % (AUTO) 11.4 % (0.0-13.0); NEUTROPHILS # (AUTO) 8.7 x10^3/uL (2.2-4.8); NEUTROPHILS % (AUTO) 73.3 % (42.0-75.0); PLATELET COUNT 236 X10^3/uL (150.0-450.0); RED BLOOD COUNT 3.33 X10^6/uL (3.5-5.4); RED CELL DISTRIBUTION WIDTH 13.7 % (11.6-16.5)
[2018-02-13 07:09] LABS: ALANINE AMINOTRANSFERASE 34 Units/L (12-78); ALBUMIN 2.3 g/dL (3.4-5.0); ALKALINE PHOSPHATASE 86 Units/L (46-116); ASPARTATE AMINO TRANSFERASE 20 Units/L (15-37); BLOOD UREA NITROGEN 89 mg/dL (7-18); CARBON DIOXIDE 29.4 mmol/L (21-32); CHLORIDE 94 mmol/L (98-107); COR CA(FOR HYPOALB) 12.4 mg/dL (8.5-10.1); CREATININE 1.71 mg/dL (0.55-1.02); SODIUM 132 mmol/L (136-145); TOTAL PROTEIN 6.5 g/dL (6.4-8.2); eGFR NON BLACK RACES 31 (>60)
[2018-02-13 07:17] LABS: BAND NEUTROPHILS % 4 % (0-10)
[2018-02-13 07:18] LABS: PLATELET MORPHOLOGY COMMENT NORMAL (NORMAL)
[2018-02-13] MEDS ORDERED: DEMADEX PO SCH (09:00)
[2018-02-13] MEDS ORDERED: ALLEGRA ONE (09:25)
[2018-02-13] MEDS ORDERED: NS 500 ML IV 500 ML IV ONE (09:32)
[2018-02-13] MEDS: PROTONIX TAB 40 MG PO SCH (09:42)
[2018-02-13] MEDS: COZAAR PO SCH (09:42)
[2018-02-13] MEDS: COREG TAB 25 MG PO SCH ×2 (09:42→21:07)
[2018-02-13] MEDS: ZAROXOYLN PO SCH (09:42)
[2018-02-13] MEDS: SYNTHROID 25 mcg TAB PO SCH (09:42)
[2018-02-13] MEDS: ALLEGRA PO SCH (09:43)
[2018-02-13] MEDS: CELEXA PO SCH (09:43)
[2018-02-13] MEDS: HEMOCYTE-PLUS PO SCH (09:43)
[2018-02-13] MEDS: FLEXERIL TAB 10 MG PO SCH ×2 (09:43→21:07)
[2018-02-13] MEDS: ASPIRIN EC 81 MG PO SCH (09:43)
[2018-02-13] MEDS: FLONASE NASAL SPRAY ENOSTRIL SCH ×2 (09:45→21:08)
[2018-02-13] MEDS: CREON PO SCH ×2 (11:37→21:07)
[2018-02-13] MEDS ORDERED: SODIUM CHL HYPERTONIC ** 3% ** 500 ML IV NR (14:00)
[2018-02-13] MEDS: REQUIP PO SCH (21:07)
[2018-02-13] MEDS: NEURONTIN CAP 100 MG PO SCH (21:08)
[2018-02-13] MEDS: RESTORIL CAP 30 MG PO SCH (21:08)
[2018-02-13] MEDS: ZOCOR TAB 40 MG PO SCH (21:08)
[2018-02-14 07:00] LABS: ALBUMIN 2.3 g/dL (3.4-5.0); CALCIUM 10.9 mg/dL (8.5-10.1); CARBON DIOXIDE 32.1 mmol/L (21-32); COR CA(FOR HYPOALB) 12.3 mg/dL (8.5-10.1); CREATININE 1.62 mg/dL (0.55-1.02); TOTAL PROTEIN 6.6 g/dL (6.4-8.2)
[2018-02-14 07:17] LABS: BASOPHILS # (AUTO) 0.1 X10^3/uL (0.0-0.1); BASOPHILS % (AUTO) 1.2 % (0.2-1.0); EOSINOPHILS # (AUTO) 0.1 x10^3/uL (0.0-0.2); EOSINOPHILS % (AUTO) 0.9 % (0.9-2.9); HEMATOCRIT 29.3 % (36.0-47.0); LYMPHOCYTES # (AUTO) 1.8 X10^3/uL (1.3-2.9); LYMPHOCYTES % (AUTO) 17.9 % (21.0-51.0); MEAN CORPUSCULAR HEMOGLOBIN 29.9 pg (27.0-34.0); MEAN CORPUSCULAR HGB CONC 34.1 g/dL (33.0-35.0); MEAN CORPUSCULAR VOLUME 87.5 fL (80.0-100.0); MONOCYTES # (AUTO) 1.6 x10^3/uL (0.3-0.8); MONOCYTES % (AUTO) 16.1 % (0.0-13.0); NEUTROPHILS # (AUTO) 6.3 x10^3/uL (2.2-4.8); NEUTROPHILS % (AUTO) 63.9 % (42.0-75.0); PLATELET COUNT 242 X10^3/uL (150.0-450.0); RED BLOOD COUNT 3.35 X10^6/uL (3.5-5.4); RED CELL DISTRIBUTION WIDTH 13.4 % (11.6-16.5); WHITE BLOOD COUNT 9.9 X10^3/uL (3.6-10.0)
[2018-02-14] MEDS ORDERED: NS 1000 ML 1,000 ML IV SCH (09:00)
[2018-02-14] MEDS ORDERED: ALLEGRA ONE (09:20)
[2018-02-14] MEDS: ALLEGRA PO SCH (09:43)
[2018-02-14] MEDS: CREON PO SCH ×2 (09:44→21:25)
[2018-02-14] MEDS: COREG TAB 25 MG PO SCH ×2 (09:44→21:13)
[2018-02-14] MEDS: COZAAR PO SCH (09:44)
[2018-02-14] MEDS: ASPIRIN EC 81 MG PO SCH (09:44)
[2018-02-14] MEDS: CELEXA PO SCH (09:44)
[2018-02-14] MEDS: SYNTHROID 25 mcg TAB PO SCH (09:45)
[2018-02-14] MEDS: FLEXERIL TAB 10 MG PO SCH ×2 (09:45→21:13)
[2018-02-14] MEDS: PROTONIX TAB 40 MG PO SCH (09:45)
[2018-02-14] MEDS: HEMOCYTE-PLUS PO SCH (09:45)
[2018-02-14] MEDS: ZAROXOYLN PO SCH (09:46)
[2018-02-14] MEDS: FLONASE NASAL SPRAY ENOSTRIL SCH ×2 (09:49→21:14)
[2018-02-14] MEDS: NS 1000 ML 1,000 ML IV SCH ×2 (12:43→16:20)
[2018-02-14] MEDS: K-DUR TAB 20 MEQ PO SCH (12:43)
[2018-02-14] MEDS ORDERED: K-DUR TAB 20 MEQ PO ONE (12:45)
[2018-02-14] MEDS: LEVOPHED INJ 8 MG in D5W 250 ML IV 242 ML IV PRN (13:37)
[2018-02-14 13:43] LABS: ABG BASE EXCESS 10.1 mmol/L (-2.0-2.0)
--- NOTE | 2018-02-14 13:57 | RAD ---
Exam: Portable chest History: 78-year-old female with weakness and altered mental status. Comparison: Previous chest radiograph from 02/12/2018 Findings: Cardiomegaly with mild vascular congestion is again seen. Cardiac pacemaker is again noted as well. Lungs are clear with no infiltrate or significant effusion on either side. Impression: Cardiomegaly with mild pulmonary vascular congestion. Findings have not changed significantly since 02/12/2018. Reported By:
[2018-02-14 14:18] LABS: ALBUMIN 2.3 g/dL (3.4-5.0); CALCIUM 10.5 mg/dL (8.5-10.1); COR CA(FOR HYPOALB) 11.9 mg/dL (8.5-10.1); CREATININE 1.71 mg/dL (0.55-1.02); TOTAL PROTEIN 6.6 g/dL (6.4-8.2)
[2018-02-14 14:19] LABS: BASOPHILS # (AUTO) 0.1 X10^3/uL (0.0-0.1); BASOPHILS % (AUTO) 0.8 % (0.2-1.0); EOSINOPHILS # (AUTO) 0.1 x10^3/uL (0.0-0.2); EOSINOPHILS % (AUTO) 1.1 % (0.9-2.9); HEMATOCRIT 29.9 % (36.0-47.0); HEMOGLOBIN 10.1 g/dL (12.0-16.0); LYMPHOCYTES # (AUTO) 1.6 X10^3/uL (1.3-2.9); LYMPHOCYTES % (AUTO) 13.5 % (21.0-51.0); MEAN CORPUSCULAR HGB CONC 33.8 g/dL (33.0-35.0); MEAN CORPUSCULAR VOLUME 88.8 fL (80.0-100.0); MEAN PLATELET VOLUME 6.6 fL (7.4-11.0); MONOCYTES # (AUTO) 2.1 x10^3/uL (0.3-0.8); MONOCYTES % (AUTO) 17.2 % (0.0-13.0); NEUTROPHILS # (AUTO) 8.1 x10^3/uL (2.2-4.8); NEUTROPHILS % (AUTO) 67.4 % (42.0-75.0); PLATELET COUNT 259 X10^3/uL (150.0-450.0); RED BLOOD COUNT 3.37 X10^6/uL (3.5-5.4); RED CELL DISTRIBUTION WIDTH 13.5 % (11.6-16.5)
[2018-02-14 14:28] LABS: BAND NEUTROPHILS % 10 % (0-10); PLATELET MORPHOLOGY COMMENT NORMAL (NORMAL)
[2018-02-14 18:40] LABS: BILIRUBIN,URINE NEGATIVE (NEGATIVE); BLOOD/HEMOGLOBIN,URINE NEGATIVE (NEGATIVE); GLUCOSE, URINE NEGATIVE (NEGATIVE); KETONES,URINE NEGATIVE (NEGATIVE); LEUKOCYTE ESTERASE ,URINE NEGATIVE (NEGATIVE); NITRITES,URINE NEGATIVE (NEGATIVE); PROTEIN,URINE NEGATIVE (NEGATIVE); UROBILINOGEN,URINE NORMAL (NORMAL)
[2018-02-14 18:52] LABS: APPEARANCE,URINE CLEAR (CLEAR); COLOR,URINE YELLOW (YELLOW)
[2018-02-14] MEDS: COLACE CAP 100 MG PO SCH (21:12)
[2018-02-14] MEDS: REQUIP PO SCH (21:13)
[2018-02-14] MEDS: NEURONTIN CAP 100 MG PO SCH (21:13)
[2018-02-14] MEDS: ZOCOR TAB 40 MG PO SCH (21:14)
[2018-02-14] MEDS: RESTORIL CAP 30 MG PO SCH (21:14)
[2018-02-14] MEDS: TYLENOL 325 MG TAB PO PRN (21:14)
[2018-02-15] MEDS: NS 1000 ML 1,000 ML IV SCH ×3 (04:23→21:07)
[2018-02-15 05:41] LABS: BASOPHILS # (AUTO) 0.1 X10^3/uL (0.0-0.1); BASOPHILS % (AUTO) 1.6 % (0.2-1.0); EOSINOPHILS # (AUTO) 0.2 x10^3/uL (0.0-0.2); EOSINOPHILS % (AUTO) 2.1 % (0.9-2.9); HEMATOCRIT 27.9 % (36.0-47.0); HEMOGLOBIN 9.4 g/dL (12.0-16.0); LYMPHOCYTES # (AUTO) 1.7 X10^3/uL (1.3-2.9); LYMPHOCYTES % (AUTO) 18.4 % (21.0-51.0); MEAN CORPUSCULAR HEMOGLOBIN 29.8 pg (27.0-34.0); MEAN CORPUSCULAR HGB CONC 33.6 g/dL (33.0-35.0); MEAN CORPUSCULAR VOLUME 88.8 fL (80.0-100.0); MEAN PLATELET VOLUME 6.7 fL (7.4-11.0); MONOCYTES # (AUTO) 1.4 x10^3/uL (0.3-0.8); MONOCYTES % (AUTO) 15.1 % (0.0-13.0); NEUTROPHILS # (AUTO) 5.9 x10^3/uL (2.2-4.8); NEUTROPHILS % (AUTO) 62.8 % (42.0-75.0); PLATELET COUNT 230 X10^3/uL (150.0-450.0); RED BLOOD COUNT 3.14 X10^6/uL (3.5-5.4); RED CELL DISTRIBUTION WIDTH 13.7 % (11.6-16.5); WHITE BLOOD COUNT 9.4 X10^3/uL (3.6-10.0)
[2018-02-15 05:48] LABS: ALANINE AMINOTRANSFERASE 38 Units/L (12-78); ALBUMIN 2.1 g/dL (3.4-5.0); ALKALINE PHOSPHATASE 61 Units/L (46-116); ASPARTATE AMINO TRANSFERASE 25 Units/L (15-37); BLOOD UREA NITROGEN 71 mg/dL (7-18); CALCIUM 9.5 mg/dL (8.5-10.1); CHLORIDE 100 mmol/L (98-107); CREATININE 1.71 mg/dL (0.55-1.02); SODIUM 137 mmol/L (136-145); TOTAL PROTEIN 5.9 g/dL (6.4-8.2); eGFR NON BLACK RACES 31 (>60)
[2018-02-15] MEDS ORDERED: KLOR-CON PO PRN (05:57)
[2018-02-15] MEDS ORDERED: POTASSIUM CHL 40 MEQ/NS 0.45% 500 ML IV PRN (05:57)
[2018-02-15] MEDS ORDERED: MICRO K EXTEN CAP 10 MEQ PO PRN (05:57)
[2018-02-15] MEDS ORDERED: K-RIDER 10 MEQ/NS 100 ML 10 MEQ/100 ML BAG IV PRN (05:57)
[2018-02-15] MEDS ORDERED: POTASSIUM CHL 60 MEQ/NS 0.45% 500 ML IV PRN (05:57)
[2018-02-15] MEDS ORDERED: POTASSIUM CHLORIDE LIQ 20 MEQ UDC PO PRN (05:57)
[2018-02-15 06:03] LABS: BAND NEUTROPHILS % 2 % (0-10)
[2018-02-15 06:04] LABS: PLATELET MORPHOLOGY COMMENT NORMAL (NORMAL)
[2018-02-15] MEDS ORDERED: K-RIDER 10 MEQ/NS 100 ML 0 MEQ/0 ML BAG IV ONE (06:07)
[2018-02-15] MEDS: K-DUR TAB 20 MEQ PO PRN (06:16)
[2018-02-15] MEDS ORDERED: ALLEGRA ONE (09:00)
[2018-02-15] MEDS: HEMOCYTE-PLUS PO SCH (09:07)
[2018-02-15] MEDS: CELEXA PO SCH (09:07)
[2018-02-15] MEDS: COLACE CAP 100 MG PO SCH ×2 (09:07→21:07)
[2018-02-15] MEDS: K-DUR TAB 20 MEQ PO SCH (09:07)
[2018-02-15] MEDS: SYNTHROID 25 mcg TAB PO SCH (09:07)
[2018-02-15] MEDS: ZAROXOYLN PO SCH (09:07)
[2018-02-15] MEDS: COREG TAB 25 MG PO SCH ×2 (09:08→21:07)
[2018-02-15] MEDS: ASPIRIN EC 81 MG PO SCH (09:08)
[2018-02-15] MEDS: FLEXERIL TAB 10 MG PO SCH (09:08)
[2018-02-15] MEDS: PROTONIX TAB 40 MG PO SCH (09:08)
[2018-02-15] MEDS: ALLEGRA PO SCH (09:08)
[2018-02-15] MEDS: FLONASE NASAL SPRAY ENOSTRIL SCH ×2 (09:09→21:06)
[2018-02-15] MEDS: COZAAR PO SCH (09:09)
[2018-02-15] MEDS: CREON PO SCH ×2 (09:10→21:39)
--- NOTE | 2018-02-15 13:00 | PCM.PROG ---
Progress Note - Progress Note for Day of Date of Exam: 02/15/18 - Subjective Subjective: 78 WF ADMITTE DON 02/12 WITH WEAKNESS, AMS, HYPNATREMIA. SINCE ADMISSION PT'S NA RETURNED TO NORMAL, 137 THIS AM. PT IS HYPOKALEMIC 2.9 THIS AM WITH POTASSIUM REPLACEMENT. PT IS MORE AWAKE AND ALERT THIS AM. PT WAS STARTED ON LEVOPHED DRIP YESTERDAY AFTERNOON DUE TO HYPOTENSION, DESPITE IV FLUIDS BOLUS. PT BP 110 SYSTOLIC THIS AM, WILL TRITRATE OFF LEVOPHED AND REPEAT AM LABS. - Past Medical Family Social History Past Med/Fam/Surg Hx: No changes since H&P Allergies: Allergies No Known Allergies Allergy (Verified 05/28/17 16:06) - Review of Systems ROS: No change since H&P - Vital Signs and I&O's Vital Signs: Temperature 97.0 F Pulse Rate [Left Brachial] 70 Pulse Rate 69 Respiratory Rate 24 Blood Pressure [Right Arm] 105/62 Blood Pressure 108/54 O2 Sat by Pulse Oximetry 98 Intake and Output: Intake & Output 02/13/18 02/14/18 02/15/18 02/16/18 11:59 11:59 11:59 11:59 Intake Total 1295 / 1295 2388 / 2388 2515 / 2515 Output Total 800 / 800 4050 / 4050 2200 / 2200 Balance 495 / 495 -1662 / -1662 315 / 315 - Physical Exam Oriented: Normal Eyes: Blurred Vision (RIGHT CHRONIC VISION IMPAIRMENT), Other (CHRONIC) Respiratory: Diminished Cardiovascular: Normal : Normal Tenderness: Normal Skin: Normal Musculoskeletal: Normal Psychiatric: Normal Mood Description: Calm Speech Pattern: Clear, Appropriate - Laboratory and Diagnostics Result Diagrams: 02/15/18 04:44 02/15/18 04:44 Labs: Laboratory WBC 9.4 X10^3/uL (3.6-10.0) 02/15/18 04:44 RBC 3.14 X10^6/uL (3.5-5.4) L 02/15/18 04:44 Hgb 9.4 g/dL (12.0-16.0) L 02/15/18 04:44 Hct 27.9 % (36.0-47.0) L 02/15/18 04:44 MCV 88.8 fL (80.0-100.0) 02/15/18 04:44 MCH 29.8 pg (27.0-34.0) 02/15/18 04:44 MCHC 33.6 g/dL (33.0-35.0) 02/15/18 04:44 RDW 13.7 % (11.6-16.5) 02/15/18 04:44 Plt Count 230 X10^3/uL (150.0-450.0) 02/15/18 04:44 Plt Count Comment Adequate (ADEQUATE) 02/15/18 04:44 MPV 6.7 fL (7.4-11.0) L 02/15/18 04:44 Neut % (Auto) 62.8 % (42.0-75.0) 02/15/18 04:44 Lymph % (Auto) 18.4 % (21.0-51.0) L 02/15/18 04:44 [place] % (Auto) 15.1 % (0.0-13.0) H 02/15/18 04:44 Eos % (Auto) 2.1 % (0.9-2.9) 02/15/18 04:44 Baso % (Auto) 1.6 % (0.2-1.0) H 02/15/18 04:44 Neut # (Auto) 5.9 x10^3/uL (2.2-4.8) H 02/15/18 04:44 Lymph # (Auto) 1.7 X10^3/uL (1.3-2.9) 02/15/18 04:44 [place] # (Auto) 1.4 x10^3/uL (0.3-0.8) H 02/15/18 04:44 Eos # (Auto) 0.2 x10^3/uL (0.0-0.2) 02/15/18 04:44 Baso # (Auto) 0.1 X10^3/uL (0.0-0.1) 02/15/18 04:44 Absolute Nucleated RBC 0.1 /100WBC 02/15/18 04:44 Total Counted 100 02/15/18 04:44 Neutrophils % (Manual) 61 % (39-76) 02/15/18 04:44 Band Neutrophils % 2 % (0-10) 02/15/18 04:44 Lymphocytes % (Manual) 20 % (13-43) 02/15/18 04:44 Monocytes % (Manual) 15 % (4-9) H 02/15/18 04:44 Eosinophils % (Manual) 2 % (0-6) 02/15/18 04:44 Plt Morphology Comment Normal (NORMAL) 02/15/18 04:44 RBC Morphology Normal (NORMAL) 02/15/18 04:44 Sample Site Rt bra 02/14/18 13:37 ABG pH 7.440 (7.35-7.45) 02/14/18 13:37 ABG pCO2 53.0 mmHg (35.0-45.0) H* 02/14/18 13:37 ABG pO2 106.0 mmHg (80.0-100.0) H 02/14/18 13:37 ABG HCO3 36.0 mmol/L (22-26) H* 02/14/18 13:37 ABG O2 Saturation 98.0 % (90-100) 02/14/18 13:37 ABG Base Excess 10.1 mmol/L (-2.0-2.0) H 02/14/18 13:37 Amauri Test Na 02/14/18 13:37 A-a Gradient 27.0 mmHg 02/14/18 13:37 FiO2 28.0 02/14/18 13:37 Blood Gas Comments Hamida well 02/14/18 13:37 Sodium 137 mmol/L (136-145) 02/15/18 04:44 Corrected Sodium TNP 02/15/18 04:44 Potassium 2.9 mmol/L (3.5-5.1) L* 02/15/18 04:44 Chloride 100 mmol/L (98-107) 02/15/18 04:44 Carbon Dioxide 30.0 mmol/L (21-32) 02/15/18 04:44 BUN 71 mg/dL (7-18) H 02/15/18 04:44 Creatinine 1.71 mg/dL (0.55-1.02) H 02/15/18 04:44 Est GFR (MDRD) Af Amer 37 (>60) L 02/15/18 04:44 Est GFR (MDRD) Non-Af 31 (>60) L 02/15/18 04:44 Glucose 93 mg/dL (65-99) 02/15/18 04:44 POC Glucose (mg/dL) 137 mg/dL (65-99) H 02/14/18 13:00 Calcium 9.5 mg/dL (8.5-10.1) 02/15/18 04:44 Corrected Calcium 11.0 mg/dL (8.5-10.1) H 02/15/18 04:44 Magnesium 2.2 mg/dL (1.7-2.9) 02/15/18 04:44 Total Bilirubin 0.30 mg/dL (0.2-1.0) 02/15/18 04:44 AST 25 Units/L (15-37) 02/15/18 04:44 ALT 38 Units/L (12-78) 02/15/18 04:44 Alkaline Phosphatase 61 Units/L (46-116) 02/15/18 04:44 Creatine Kinase 37 Units/L (26-192) 02/13/18 02:20 CK-MB (CK-2) 1.0 ng/mL (0-4.0) 02/13/18 02:20 CK/CKMB % Calc 2.7 % (<4) 02/13/18 02:20 Troponin I < 0.02 ng/mL (0-1.5) 02/13/18 02:20 Total Protein 5.9 g/dL (6.4-8.2) L 02/15/18 04:44 Albumin 2.1 g/dL (3.4-5.0) L 02/15/18 04:44 Globulin 3.8 g/dL (2.5-4.5) 02/15/18 04:44 Albumin/Globulin Ratio 0.6 Ratio (1.1-2.1) L 02/15/18 04:44 Specimen Type Random urine 02/14/18 18:14 Urine Color Yellow (YELLOW) 02/14/18 18:14 Urine Appearance Clear (CLEAR) 02/14/18 18:14 Urine pH 7.0 (5.0 - 8.0) 02/14/18 18:14 Ur Specific [place] 1.015 (1.000-1.030) 02/14/18 18:14 Urine Protein Negative (NEGATIVE) 02/14/18 18:14 Urine Glucose (UA) Negative (NEGATIVE) 02/14/18 18:14 Urine Ketones Negative (NEGATIVE) 02/14/18 18:14 Urine Occult Blood Negative (NEGATIVE) 02/14/18 18:14 Urine Nitrite Negative (NEGATIVE) 02/14/18 18:14 Urine Bilirubin Negative (NEGATIVE) 02/14/18 18:14 Urine Urobilinogen Normal (NORMAL) 02/14/18 18:14 Ur Leukocyte Esterase Negative (NEGATIVE) 02/14/18 18:14 Urine RBC 0-2 /HPF (NONE SEEN) 02/12/18 20:12 Urine WBC 0-2 /HPF (NONE SEEN) 02/12/18 20:12 Ur Squamous Epith Cells Few /HPF (NEGATIVE) 02/12/18 20:12 Ur Renal Epithelial Cell Few /HPF (NEGATIVE) 02/12/18 20:12 Urine Bacteria Negative /HPF (NEGATIVE) 02/12/18 20:12 Ur Culture Indicated? No/not indicated 02/12/18 20:12 - Plan (1) Hyponatremia Status: Acute Plan: CONTINUE GENTLE IV HYDRATION, ENCOURAGE ORAL HYDRATION STRICT I & OS, BP CONTROL. REPEAT AM LABS, ENCOURAGE PT. CONTINUOUS CARDIAC MONITORING (2) Acute hypotension Status: Acute Plan: TITRATE LEVOPHED PRN, CONTINUE BP AND CARDIAC MONITORING. STRICT I & OS (3) Congestive heart failure Status: Acute Qualifiers: Heart failure type: unspecified Heart failure chronicity: acute on chronic Qualified Code(s): I50.9 - Heart failure, unspecified (4) Hypokalemia Status: Acute (5) Chronic kidney disease Status: Acute
[2018-02-15] MEDS ORDERED: FLEXERIL TAB 10 MG PO PRN (13:04)
[2018-02-15] MEDS: LEVOPHED INJ 8 MG in D5W 250 ML IV 242 ML IV PRN (15:01)
[2018-02-15] MEDS: ZOCOR TAB 40 MG PO SCH (21:07)
[2018-02-15] MEDS: REQUIP PO SCH (21:07)
[2018-02-15] MEDS: NEURONTIN CAP 100 MG PO SCH (21:07)
[2018-02-16] MEDS: TYLENOL 325 MG TAB PO PRN (01:00)
--- NOTE | 2018-02-16 05:31 | RAD ---
Examination: AP chest History: Respiratory distress Comparison 02/14/2018 Findings: Stable cardiac size and pacemaker position. The lungs are essentially clear. There is no evidence for consolidation, pulmonary edema or significant pleural effusion. Impression: No acute cardiopulmonary or pleural lesion identified. Reported By:
[2018-02-16 06:06] LABS: BASOPHILS # (AUTO) 0.1 X10^3/uL (0.0-0.1); BASOPHILS % (AUTO) 0.9 % (0.2-1.0); EOSINOPHILS # (AUTO) 0.1 x10^3/uL (0.0-0.2); EOSINOPHILS % (AUTO) 1.3 % (0.9-2.9); HEMATOCRIT 27.8 % (36.0-47.0); HEMOGLOBIN 9.6 g/dL (12.0-16.0); LYMPHOCYTES # (AUTO) 2.3 X10^3/uL (1.3-2.9); LYMPHOCYTES % (AUTO) 21.3 % (21.0-51.0); MEAN CORPUSCULAR HEMOGLOBIN 30.4 pg (27.0-34.0); MEAN CORPUSCULAR HGB CONC 34.5 g/dL (33.0-35.0); MEAN CORPUSCULAR VOLUME 88.3 fL (80.0-100.0); MEAN PLATELET VOLUME 6.5 fL (7.4-11.0); MONOCYTES # (AUTO) 1.5 x10^3/uL (0.3-0.8); MONOCYTES % (AUTO) 14.3 % (0.0-13.0); NEUTROPHILS # (AUTO) 6.6 x10^3/uL (2.2-4.8); NEUTROPHILS % (AUTO) 62.2 % (42.0-75.0); PLATELET COUNT 246 X10^3/uL (150.0-450.0); RED BLOOD COUNT 3.15 X10^6/uL (3.5-5.4); RED CELL DISTRIBUTION WIDTH 13.8 % (11.6-16.5); WHITE BLOOD COUNT 10.6 X10^3/uL (3.6-10.0)
[2018-02-16 06:09] LABS: ALBUMIN 2.1 g/dL (3.4-5.0); CALCIUM 9.4 mg/dL (8.5-10.1); CARBON DIOXIDE 28.9 mmol/L (21-32); COR CA(FOR HYPOALB) 10.9 mg/dL (8.5-10.1); CREATININE 1.23 mg/dL (0.55-1.02); TOTAL PROTEIN 6.1 g/dL (6.4-8.2)
[2018-02-16 06:28] LABS: BAND NEUTROPHILS % 3 % (0-10)
[2018-02-16 06:29] LABS: PLATELET MORPHOLOGY COMMENT NORMAL (NORMAL)
[2018-02-16] MEDS: NS 1000 ML 1,000 ML IV SCH ×3 (06:37→12:29)
[2018-02-16] MEDS ORDERED: ALLEGRA ONE (07:15)
[2018-02-16] MEDS: K-DUR TAB 20 MEQ PO SCH (08:02)
[2018-02-16] MEDS: PROTONIX TAB 40 MG PO SCH (08:03)
[2018-02-16] MEDS: ALLEGRA PO SCH (08:05)
[2018-02-16] MEDS: COZAAR PO SCH (08:06)
[2018-02-16] MEDS: HEMOCYTE-PLUS PO SCH (08:06)
[2018-02-16] MEDS: SYNTHROID 25 mcg TAB PO SCH (08:06)
[2018-02-16] MEDS: CELEXA PO SCH (08:06)
[2018-02-16] MEDS: COLACE CAP 100 MG PO SCH ×2 (08:06→20:07)
[2018-02-16] MEDS: ASPIRIN EC 81 MG PO SCH (08:06)
[2018-02-16] MEDS: COREG TAB 25 MG PO SCH (08:06)
[2018-02-16] MEDS: FLONASE NASAL SPRAY ENOSTRIL SCH ×2 (08:15→20:10)
[2018-02-16] MEDS: CREON PO SCH ×2 (08:16→20:08)
[2018-02-16] MEDS: ZAROXOYLN PO SCH (11:03)
[2018-02-16] MEDS ORDERED: LASIX IVP ONE (11:41)
--- NOTE | 2018-02-16 12:33 | RAD ---
HISTORY: Dyspnea Study: Single-view chest Comparison: Earlier the same day Findings: There is an AICD. The trachea is midline. The cardiac silhouette is enlarged. The lungs are clear without focal mass or consolidation. There is no effusion or pneumothorax. The bony thorax is grossly unremarkable. IMPRESSION: No acute cardiopulmonary disease. Reported By:
--- NOTE | 2018-02-16 15:12 | CT ---
HISTORY: Dyspnea Study: CT chest without contrast Comparison: None Technique: Multiple axial images of the chest were obtained from the thoracic inlet to the upper abdomen without the administration of IV contrast. AEC was utilized. Findings: The thyroid is unremarkable. There is no pericardial effusion observed. The thoracic aorta is normal in its contour without evidence for aneurysmal dilatation. An AICD and coronary/aortic atherosclerosis are noted. Evaluation of the lung parenchyma demonstrates multifocal linear scar versus subsegmental atelectasis without lobar mass or consolidation. There is a calcified granuloma in the right upper lobe (series 9 image 46 through 48) with an additional noncalcified 4 mm pulmonary nodule for which follow-up is recommended. There is no pathologic hilar or mediastinal lymphadenopathy. There is no effusion or pneumothorax. No destructive osseous lesions are seen. There is a small hiatal hernia. The patient is status post cholecystectomy. IMPRESSION: Multifocal linear scar versus subsegmental atelectasis. Probable postinflammatory pulmonary nodule right upper lobe for which a 1 year follow-up is recommended. Coronary and aortic atherosclerosis. Small hiatal hernia. Reported By:
[2018-02-16] MEDS: COREG TAB 3.125 MG PO SCH (20:07)
[2018-02-16] MEDS: ZOCOR TAB 40 MG PO SCH (20:07)
[2018-02-16] MEDS ORDERED: REQUIP PO SCH (21:00)
[2018-02-17 05:33] LABS: BASOPHILS # (AUTO) 0.1 X10^3/uL (0.0-0.1); BASOPHILS % (AUTO) 0.9 % (0.2-1.0); EOSINOPHILS # (AUTO) 0.1 x10^3/uL (0.0-0.2); EOSINOPHILS % (AUTO) 1.2 % (0.9-2.9); HEMATOCRIT 29.8 % (36.0-47.0); HEMOGLOBIN 10.1 g/dL (12.0-16.0); LYMPHOCYTES # (AUTO) 2.1 X10^3/uL (1.3-2.9); LYMPHOCYTES % (AUTO) 19.2 % (21.0-51.0); MEAN CORPUSCULAR HEMOGLOBIN 30.2 pg (27.0-34.0); MEAN CORPUSCULAR HGB CONC 33.7 g/dL (33.0-35.0); MEAN CORPUSCULAR VOLUME 89.7 fL (80.0-100.0); MEAN PLATELET VOLUME 6.6 fL (7.4-11.0); MONOCYTES # (AUTO) 1.3 x10^3/uL (0.3-0.8); MONOCYTES % (AUTO) 12.1 % (0.0-13.0); NEUTROPHILS # (AUTO) 7.2 x10^3/uL (2.2-4.8); NEUTROPHILS % (AUTO) 66.6 % (42.0-75.0); PLATELET COUNT 267 X10^3/uL (150.0-450.0); RED BLOOD COUNT 3.32 X10^6/uL (3.5-5.4); RED CELL DISTRIBUTION WIDTH 13.3 % (11.6-16.5); WHITE BLOOD COUNT 10.8 X10^3/uL (3.6-10.0)
[2018-02-17 05:53] LABS: ALANINE AMINOTRANSFERASE 40 Units/L (12-78); ALBUMIN 2.3 g/dL (3.4-5.0); ALKALINE PHOSPHATASE 63 Units/L (46-116); ASPARTATE AMINO TRANSFERASE 22 Units/L (15-37); BLOOD UREA NITROGEN 29 mg/dL (7-18); CALCIUM 9.8 mg/dL (8.5-10.1); CARBON DIOXIDE 31.3 mmol/L (21-32); CHLORIDE 103 mmol/L (98-107); COR CA(FOR HYPOALB) 11.2 mg/dL (8.5-10.1); CREATININE 0.96 mg/dL (0.55-1.02); SODIUM 142 mmol/L (136-145); TOTAL PROTEIN 6.5 g/dL (6.4-8.2); eGFR NON BLACK RACES 60 (>60)
[2018-02-17 06:06] LABS: BAND NEUTROPHILS % 5 % (0-10); PLATELET MORPHOLOGY COMMENT NORMAL (NORMAL)
[2018-02-17] MEDS: K-DUR TAB 20 MEQ PO PRN ×2 (06:19→06:26)
[2018-02-17] MEDS ORDERED: ALLEGRA ONE (08:39)
[2018-02-17] MEDS: ALLEGRA PO SCH (08:44)
[2018-02-17] MEDS: COLACE CAP 100 MG PO SCH (08:44)
[2018-02-17] MEDS: CREON PO SCH (08:45)
[2018-02-17] MEDS: K-DUR TAB 20 MEQ PO SCH (08:45)
[2018-02-17] MEDS: CELEXA PO SCH (08:45)
[2018-02-17] MEDS: COREG TAB 3.125 MG PO SCH (08:45)
[2018-02-17] MEDS: PROTONIX TAB 40 MG PO SCH (08:45)
[2018-02-17] MEDS: HEMOCYTE-PLUS PO SCH (08:45)
[2018-02-17] MEDS: ASPIRIN EC 81 MG PO SCH (08:45)
[2018-02-17] MEDS: SYNTHROID 25 mcg TAB PO SCH (08:45)
[2018-02-17] MEDS: FLONASE NASAL SPRAY ENOSTRIL SCH (10:11)
[2018-02-17] MEDS: MAGNESIUM SULFATE 1 GRAM/100 mL PREMIX 1 GM/100 ML BAG IV PRN ×2 (11:44→13:43)
[2018-02-17] MEDS: NS 1000 ML 1,000 ML IV SCH (11:45)
[2018-02-17] MEDS ORDERED: PATIENT'S HOME MEDICATION PO SCH (12:59)
[2018-02-17 14:35] VITALS: BP 117/60
== END 2018-02-17 14:30 | disposition home or self-care (01) | DRG 641 ==
LOC: ER 10:10 → ICU 11:47
PROVIDERS: ADMIT Obstetrics & Gynecology Obstetrics; ATTEND Obstetrics & Gynecology Obstetrics
DX: E03.8 Other specified hypothyroidism; K21.9 Gastro-esophageal reflux disease without esophagitis; R13.12 Dysphagia, oropharyngeal phase; E87.6 Hypokalemia; I95.89 Other hypotension; R53.1 Weakness; E87.1 Hypo-osmolality and hyponatremia; N18.9 Chronic kidney disease, unspecified; R26.89 Other abnormalities of gait and mobility; R79.89 Other specified abnormal findings of blood chemistry; I50.9 Heart failure, unspecified; F41.8 Other specified anxiety disorders; J32.0 Chronic maxillary sinusitis; R51 Headache; R42 Dizziness and giddiness; E78.2 Mixed hyperlipidemia; R94.31 Abnormal electrocardiogram [ECG] [EKG]; R41.82 Altered mental status, unspecified; Z95.0 Presence of cardiac pacemaker; F32.89 Other specified depressive episodes
CPT/HCPCS: 36415; 36600; 70450; 71010; 71045; 71250; 80053; 81001; 81003; 82550; 82553; 82803; 83735; 84132; 84484; 85025; 87040; 92610; 93005; 93010; 94640; 96365; 96374; 97162; 97166; 97530; 97535; 99231; 99284; A4216; A4222; J0696; J1940; J3475; J3490; J7030; J7040; J7060; J7131; J7620

== ENCOUNTER 2019-05-15 20:09 | Inpatient (IN) ==
[2019-05-15] MEDS ORDERED: NS 1000 ML 1,000 ML IV ONE (20:43)
--- NOTE | 2019-05-15 20:48 | DR.GENAD ---
HPI Time Seen Time Seen by Provider: 05/15/19 20:41 PCP Primary Care Physician: SAUL BORGES HPI Comment HPI Comment: PATIENT IS 79YR OLD WHITE FEMALE IN ER WITH GENERALIZED WEAKNESS, AMSAND UNSTEADY GAIT. SHE IS BEING CONGESTED ON ANTIBIOTIC. HAD IM ANTIBIOTIC IN THE PCP OFFICE TIMES 2 THIS WEEK. HAVE CANCER RIGHT EYE WITH BLINDNESS AND HAD R ADIATION THERAPY. LAST THEPY TAKEN ONE WEEK AGO. DENIES FEVER. SAID HER APPETITE IS FINE. Complaint/Symptoms Chief Complaint Doctors Comments: GENERALIZED WEAKNESS AND UNSTEADY GAIT TIMES ONE WEEK. Chief Complaint:: PT C/O GENERALIZED WEAKNESS AND UNSTEADY GAIT X 1 WEEK. PT HAD BEEN SEEN IN PCP OFFICE TWICE OVER THE PAST WEEK AND TREATED WITH ANTIBIOTICS FOR SINUS SYMPTOMS. PT FOLLOWED UP THIS MORNING WITH SAUL BORGES AND RECEIVED ANOTHER ANTIBIOTIC SHOT. PT STATES SHE HAD JUST BEEN SO WEAK SHE HASN'T BEEN ABLE TO GET AROUND LIKE NORMAL. Nurses notes reviewed Nurses Notes Review: Yes Source History Provided: Patient and EMS Mode of Arrival Mode of Arrival: EMS Timing Onset of Chief Complaint: 05/11/19 Came on: Suddenly Duration Duration: Constant Duration: Days Severity Severity: Moderate Modifying Factors Worsens:: MOVEMENT. Improves:: REST. Associated Signs and Symptoms Associated Signs and Symptoms: BLINDNESS RIGHT EYE. Other History Other History: CANCER EYE. PMH PMH Past Medical History: Yes Past Medical History: Anxiety, CHF, COPD, Depression, Dyslipidemia, GERD, Hyp ertension, Hypothyroidism, PR and Renal Disease Past Medical History Comment: INSOMNIA Past Surgical History: Yes Surgical History: Cholecystectomy and Hysterectomy Past Surgical History Comment: PACEMAKER, DEFIBRILLATOR Family History History of Family Medical Conditions: No (UNKNOWN) Family Medical History: Diabetes Mellitus, Coronary Artery Disease and Hypertension Social History Does patient currently use any type of tobacco product: No Have you used tobacco products in the last 12 months: No Type of Tobacco Use: None Does any household member use tobacco: No Alcohol Use: None Do you use any recreational Drugs:: No Lives With: Spouse Lives Where: Home Travel Risk Coronavirus risk:travel/contact w/high risk person: No Has patient experienced Coronavirus symptoms: No Infectious screening In the last 2 months have you had wt loss of >10#?: NO Have you had fever, night sweats or hemotysis?: No Have you traveled outside the country in the last 6 months?: No Isolation: Standard ROS Review of Systems Constitutional: See HPI, Weakness and Fatigue; negative Fever Eyes: See HPI and Other (BLINDNESS RIGHT EYE.) ENTM: See HPI, Nose Discharge and Nose Congestion; negative Ear Pain and Throat Pain Respiratoy: See HPI, Moist Cough and Short of Breath; negative Wheezing Cardiovascular: See HPI and Syncope (NEAR SYNCOPAL FEELING.); negative Chest Pain Gastrointestinal/Abdominal: No Symptoms Reported and See HPI; negative Abdominal Pain, Diarrhea and Vomiting Genitourinary: No Symptoms Reported and See HPI; negative Dysuria Neurological: See HPI, Headache, Weakness and Problems Walking (ATAXIA.) Musculoskeletal: No Symptoms Reported Integumentary: No Symptoms Reported and See HPI Hematologic/Lymphatic: No Symptoms Reported and See HPI Endocrine: No Symptoms Reported, See HPI, Increased Thirst and Increased Urine Psychiatric: No Symptoms Reported and See HPI All Other Systems: Reviewed and Negative Unable to Obtain Due To: Altered mental status PE Vital Signs Vitals: Temperature 97.3 F Pulse Rate 65 Respiratory Rate 20 Blood Pressure [Right Arm] 105/62 Blood Pressure 146/73 O2 Sat by Pulse Oximetry 100 General Limitations: Altered Mental Status General Appearance: Alert and In No Apparent Distress Head Head Exam: Normal Inspection and Atraumatic Eyes Eye exam: Other (BLIND RT EYE.) ENT ENT Exam: Normal Exam, Normal Oropharynx, Normal External Ear Exam and TM's Normal Bilaterally External Ear Exam: Normal External Inspection; negative Mastoid Tenderness TM/Canal Exam: Bilateral: Normal Nose Exam: Normal Nose Exam; negative Sinus Tenderness Mouth Exam: Normal Inspection Throat Exam: Normal Inspection; negative Tonsillar Erythema, Tonsillomegaly and Tonsillar Exudate Neck Neck Exam: Normal Inspection and Trachea Midline; negative Tenderness and Lymphadenopathy Chest Chest Inspection: Normal Inspection and Symmetric Chest Wall Rise; negative Tenderness Respiratory Respiratory Exam: negative Accessory Muscle Use, Chest Wall Tenderness and Respiratory Distress Respiratory Exam: Bilateral: Rhonchi and Lower: Rhonchi Cardiovascular Cardiovascular Exam: Regular Rate, Normal Rhythm and Normal Heart Sounds Abdominal Exam Abdominal Exam: Normal Inspection, Normal Bowel Sounds and Soft; negative Tenderness Extremities Extremities Exam: Normal Inspection and Tenderness Back Back Exam: Paraspinal Tenderness Neurologic Neurological Exam: Alert; negative Motor Sensory Deficit Psychiatric Psychiatric Exam: Normal Affect Skin Skin Exam: Warm, Dry and Intact MDM Additional Information Additional Information Obtained From: Family Differential Diagnosis Differential Diagnosis: HYPOTENSION, DEHYDRATION, PNEUMONIA, PR, GENERALIZED WEAKNESS. COURSE Treatment Treatment: SEE ORDERS. Consultation Consultation Comments: DISCUSSED PATIENT WITH DR. COLLINS. HE WILL ADMIT PATIENT. Education/Counseling Education/Counseling: Patient and Family Educated On: Diagnosis ROR Labs Reviewed Laboratory Results Reviewed?: Yes Result Diagrams: 05/16/19 04:52 05/16/19 04:52 Laboratory: WBC 8.9 X10^3/uL (3.6-10.0) 05/15/19 20:58 RBC 3.55 X10^6/uL (3.5-5.4) 05/15/19 20:58 Hgb 10.7 g/dL (12.0-16.0) L 05/15/19 20:58 Hct 31.6 % (36.0-47.0) L 05/15/19 20:58 MCV 89.1 fL (80.0-100.0) 05/15/19 20:58 MCH 30.0 pg (27.0-34.0) 05/15/19 20:58 MCHC 33.7 g/dL (33.0-35.0) 05/15/19 20:58 RDW 13.3 % (11.6-16.5) 05/15/19 20:58 Plt Count 148 X10^3/uL (150.0-450.0) L 05/15/19 20:58 MPV 6.9 fL (7.4-11.0) L 05/15/19 20:58 Neut % (Auto) 76.0 % (42.0-75.0) H 05/15/19 20:58 Lymph % (Auto) 12.3 % (21.0-51.0) L 05/15/19 20:58 [place] % (Auto) 9.6 % (0.0-13.0) 05/15/19 20:58 Eos % (Auto) 1.6 % (0.9-2.9) 05/15/19 20:58 Baso % (Auto) 0.5 % (0.2-1.0) 05/15/19 20:58 Neut # (Auto) 6.8 x10^3/uL (2.2-4.8) H 05/15/19 20:58 Lymph # (Auto) 1.1 X10^3/uL (1.3-2.9) L 05/15/19 20:58 [place] # (Auto) 0.9 x10^3/uL (0.3-0.8) H 05/15/19 20:58 Eos # (Auto) 0.1 x10^3/uL (0.0-0.2) 05/15/19 20:58 Baso # (Auto) 0.0 X10^3/uL (0.0-0.1) 05/15/19 20:58 Absolute Nucleated RBC 0.0 /100WBC 05/15/19 20:58 Sodium 129 mmol/L (136-145) L 05/15/19 20:58 Corrected Sodium TNP 05/15/19 20:58 Potassium 5.6 mmol/L (3.5-5.1) H 05/15/19 20:58 Chloride 94 mmol/L (98-107) L 05/15/19 20:58 Carbon Dioxide 27.9 mmol/L (21-32) 05/15/19 20:58 BUN 56 mg/dL (7-18) H 05/15/19 20:58 Creatinine 3.62 mg/dL (0.55-1.02) H 05/15/19 20:58 Est GFR (MDRD) Af Amer 16 (>60) L 05/15/19 20:58 Est GFR (MDRD) Non-Af 13 (>60) L 05/15/19 20:58 Glucose 105 mg/dL (65-99) H 05/15/19 20:58 Lactic Acid 0.8 mmol/L (0.4-2.0) 05/15/19 20:58 Calcium 9.2 mg/dL (8.5-10.1) 05/15/19 20:58 Corrected Calcium 10.4 mg/dL (8.5-10.1) H 05/15/19 20:58 Total Bilirubin 0.30 mg/dL (0.2-1.0) 05/15/19 20:58 AST 90 Units/L (15-37) H 05/15/19 20:58 ALT 11 Units/L (12-78) L 05/15/19 20:58 Alkaline Phosphatase 33 Units/L (46-116) L 05/15/19 20:58 Creatine Kinase 1854 Units/L (26-192) H 05/15/19 20:58 CK-MB (CK-2) 19.4 ng/mL (0-4.0) H* 05/15/19 20:58 CK/CKMB % Calc 1.1 % (<4) 05/15/19 20:58 Troponin I 0.02 ng/mL (0-1.5) 05/15/19 20:58 B-Natriuretic Peptide 5.7 pg/mL (0-79) 05/15/19 20:58 Total Protein 6.4 g/dL (6.4-8.2) 05/15/19 20:58 Albumin 2.5 g/dL (3.4-5.0) L 05/15/19 20:58 Globulin 3.9 g/dL (2.5-4.5) 05/15/19 20:58 Albumin/Globulin Ratio 0.6 Ratio (1.1-2.1) L 05/15/19 20:58 XRAY XRAY Interpreted by: Radiologist (REPORT NOTED AND DISCUSSED WITH PATIENT AND HER .) and Self EKG Rate: 64 Rhythm: Paced Opioid Opioid Risk Tool Age (Miguel box if 16-45): No History of Preadolescent Sexual Abuse: No Total: 0 Total Score Risk Category: Low Risk Copyright: Carl FOURNIER predicting aberrant behaviors Diagnosis Discharge Problem: Acute hypotension, Acute dehydration, Bronchitis, Pulmonary congestion Acute on chronic renal failure Qualifiers: Acute renal failure type: unspecified Chronic kidney disease stage: unspecified stage Qualified Code(s): N17.9 - Acute kidney failure, unspecified
[2019-05-15] MEDS ORDERED: NS 1000 ML 1,000 ML ONE (20:56)
[2019-05-15 21:24] LABS: BASOPHILS % (AUTO) 0.5 % (0.2-1.0); EOSINOPHILS # (AUTO) 0.1 x10^3/uL (0.0-0.2); EOSINOPHILS % (AUTO) 1.6 % (0.9-2.9); HEMATOCRIT 31.6 % (36.0-47.0); HEMOGLOBIN 10.7 g/dL (12.0-16.0); LYMPHOCYTES # (AUTO) 1.1 X10^3/uL (1.3-2.9); LYMPHOCYTES % (AUTO) 12.3 % (21.0-51.0); MEAN CORPUSCULAR HGB CONC 33.7 g/dL (33.0-35.0); MEAN CORPUSCULAR VOLUME 89.1 fL (80.0-100.0); MEAN PLATELET VOLUME 6.9 fL (7.4-11.0); MONOCYTES # (AUTO) 0.9 x10^3/uL (0.3-0.8); MONOCYTES % (AUTO) 9.6 % (0.0-13.0); NEUTROPHILS # (AUTO) 6.8 x10^3/uL (2.2-4.8); PLATELET COUNT 148 X10^3/uL (150.0-450.0); RED BLOOD COUNT 3.55 X10^6/uL (3.5-5.4); RED CELL DISTRIBUTION WIDTH 13.3 % (11.6-16.5); WHITE BLOOD COUNT 8.9 X10^3/uL (3.6-10.0)
--- NOTE | 2019-05-15 21:36 | RAD ---
HISTORYsobSTUDYCHEST, 1 [id number] is decreased depth of inspiration. There is coarsening of the interstitial markings bilaterally. No dense infiltrate or significant pleural effusion. Cardiac silhouette enlargement and left subclavian approach cardiac device and leads are similar to prior.IMPRESSIONInterstitial prominence is accentuated by low lung volumes, but mild edema is not excluded.Stable cardiomegaly.Electronically signed by: ELIE NATHAN (May 15, 2019 21:34:44)
[2019-05-15 21:38] LABS: LACTIC ACID 0.8 mmol/L (0.4-2.0)
[2019-05-15 21:39] LABS: BLOOD UREA NITROGEN 56 mg/dL (7-18); CALCIUM 9.2 mg/dL (8.5-10.1); CARBON DIOXIDE 27.9 mmol/L (21-32); CHLORIDE 94 mmol/L (98-107); CREATININE 3.62 mg/dL (0.55-1.02); SODIUM 129 mmol/L (136-145); TROPONIN I 0.02 ng/mL (0-1.5); eGFR NON BLACK RACES 13 (>60)
[2019-05-15] MEDS ORDERED: NS 1000 ML 1,000 ML IV SCH (22:00)
[2019-05-15 22:02] LABS: ALANINE AMINOTRANSFERASE 11 Units/L (12-78); ALBUMIN 2.5 g/dL (3.4-5.0); ALKALINE PHOSPHATASE 33 Units/L (46-116); ASPARTATE AMINO TRANSFERASE 90 Units/L (15-37); COR CA(FOR HYPOALB) 10.4 mg/dL (8.5-10.1); TOTAL PROTEIN 6.4 g/dL (6.4-8.2)
[2019-05-15 22:08] LABS: CKMB % 1.1 % (<4); CREATINE KINASE 1854 Units/L (26-192); CREATINE KINASE MB 19.4 ng/mL (0-4.0)
[2019-05-15] MEDS ORDERED: ROCEPHIN VIAL 1 GRAM 1 G in NS 100 ML IV + SPIKE MINIBAG* 100 ML IV ONE (23:17)
[2019-05-15] MEDS ORDERED: ROCEPHIN VIAL 1 GRAM ONE (23:23)
[2019-05-15] MEDS ORDERED: NS 100 ML IV 100 ML IV ONE (23:23)
[2019-05-16] MEDS ORDERED: NYSTATIN POWDER ONE (01:28)
[2019-05-16] MEDS: NYSTATIN POWDER TOP SCH ×3 (01:40→20:30)
[2019-05-16 02:58] LABS: BILIRUBIN,URINE NEGATIVE (NEGATIVE); BLOOD/HEMOGLOBIN,URINE 3+ (NEGATIVE); GLUCOSE, URINE NEGATIVE (NEGATIVE); KETONES,URINE NEGATIVE (NEGATIVE); LEUKOCYTE ESTERASE ,URINE NEGATIVE (NEGATIVE); NITRITES,URINE NEGATIVE (NEGATIVE); PROTEIN,URINE 1+ (NEGATIVE); UROBILINOGEN,URINE NORMAL (NORMAL)
[2019-05-16 02:59] LABS: APPEARANCE,URINE HAZY (CLEAR); COLOR,URINE YELLOW (YELLOW)
[2019-05-16 03:07] LABS: BACTERIA,URINE NEGATIVE /HPF (NEGATIVE); MUCUS,URINE FEW /HPF (NEGATIVE); SQUAMOUS EPITHELIAL CELL,UR NEGATIVE /HPF (NEGATIVE)
[2019-05-16 04:39] VITALS: BMI 36.2
[2019-05-16] MEDS: NS 1000 ML 1,000 ML IV SCH ×3 (05:39→15:56)
[2019-05-16 05:50] LABS: BASOPHILS % (AUTO) 0.4 % (0.2-1.0); EOSINOPHILS # (AUTO) 0.1 x10^3/uL (0.0-0.2); EOSINOPHILS % (AUTO) 1.2 % (0.9-2.9); HEMATOCRIT 30.5 % (36.0-47.0); HEMOGLOBIN 10.3 g/dL (12.0-16.0); LYMPHOCYTES # (AUTO) 1.1 X10^3/uL (1.3-2.9); LYMPHOCYTES % (AUTO) 12.4 % (21.0-51.0); MEAN CORPUSCULAR HGB CONC 33.8 g/dL (33.0-35.0); MEAN CORPUSCULAR VOLUME 88.9 fL (80.0-100.0); MEAN PLATELET VOLUME 6.9 fL (7.4-11.0); MONOCYTES # (AUTO) 0.8 x10^3/uL (0.3-0.8); MONOCYTES % (AUTO) 8.8 % (0.0-13.0); NEUTROPHILS # (AUTO) 6.6 x10^3/uL (2.2-4.8); NEUTROPHILS % (AUTO) 77.2 % (42.0-75.0); PLATELET COUNT 148 X10^3/uL (150.0-450.0); RED BLOOD COUNT 3.43 X10^6/uL (3.5-5.4); RED CELL DISTRIBUTION WIDTH 13.5 % (11.6-16.5); WHITE BLOOD COUNT 8.6 X10^3/uL (3.6-10.0)
[2019-05-16 06:26] LABS: ALANINE AMINOTRANSFERASE 11 Units/L (12-78); ALBUMIN 2.3 g/dL (3.4-5.0); ALKALINE PHOSPHATASE 32 Units/L (46-116); ASPARTATE AMINO TRANSFERASE 89 Units/L (15-37); BLOOD UREA NITROGEN 54 mg/dL (7-18); CALCIUM 8.8 mg/dL (8.5-10.1); CARBON DIOXIDE 26.9 mmol/L (21-32); CHLORIDE 96 mmol/L (98-107); COR CA(FOR HYPOALB) 10.2 mg/dL (8.5-10.1); CREATININE 3.05 mg/dL (0.55-1.02); SODIUM 129 mmol/L (136-145); TOTAL PROTEIN 6.1 g/dL (6.4-8.2); TROPONIN I < 0.02 ng/mL (0-1.5); eGFR NON BLACK RACES 16 (>60)
[2019-05-16 06:33] LABS: CREATINE KINASE 1585 Units/L (26-192); CREATINE KINASE MB 15.4 ng/mL (0-4.0)
[2019-05-16] MEDS: LASIX IVP SCH ×2 (09:05→11:15)
[2019-05-16 12:10] LABS: TROPONIN I < 0.02 ng/mL (0-1.5)
[2019-05-16 12:14] LABS: CKMB % 0.8 % (<4); CREATINE KINASE 1350 Units/L (26-192); CREATINE KINASE MB 10.4 ng/mL (0-4.0)
[2019-05-16] MEDS: ROCEPHIN VIAL 1 GRAM 1 G in NS 100 ML IV + SPIKE MINIBAG* 100 ML IV SCH (20:30)
[2019-05-16] MEDS: TYLENOL 325 MG TAB PO PRN (23:19)
[2019-05-17] MEDS: NS 1000 ML 1,000 ML IV SCH ×3 (01:23→15:50)
[2019-05-17 05:35] LABS: BASOPHILS # (AUTO) 0.1 X10^3/uL (0.0-0.1); BASOPHILS % (AUTO) 0.9 % (0.2-1.0); EOSINOPHILS # (AUTO) 0.1 x10^3/uL (0.0-0.2); EOSINOPHILS % (AUTO) 1.9 % (0.9-2.9); HEMATOCRIT 28.9 % (36.0-47.0); HEMOGLOBIN 9.8 g/dL (12.0-16.0); LYMPHOCYTES # (AUTO) 1.1 X10^3/uL (1.3-2.9); LYMPHOCYTES % (AUTO) 16.9 % (21.0-51.0); MEAN CORPUSCULAR HEMOGLOBIN 30.5 pg (27.0-34.0); MEAN CORPUSCULAR HGB CONC 33.9 g/dL (33.0-35.0); MEAN CORPUSCULAR VOLUME 90.1 fL (80.0-100.0); MEAN PLATELET VOLUME 7.4 fL (7.4-11.0); MONOCYTES # (AUTO) 0.8 x10^3/uL (0.3-0.8); MONOCYTES % (AUTO) 11.7 % (0.0-13.0); NEUTROPHILS # (AUTO) 4.6 x10^3/uL (2.2-4.8); NEUTROPHILS % (AUTO) 68.6 % (42.0-75.0); PLATELET COUNT 148 X10^3/uL (150.0-450.0); RED CELL DISTRIBUTION WIDTH 13.5 % (11.6-16.5); WHITE BLOOD COUNT 6.8 X10^3/uL (3.6-10.0)
[2019-05-17 05:45] LABS: ALANINE AMINOTRANSFERASE 43 Units/L (12-78); ALBUMIN 2.1 g/dL (3.4-5.0); ALKALINE PHOSPHATASE 29 Units/L (46-116); ASPARTATE AMINO TRANSFERASE 65 Units/L (15-37); BLOOD UREA NITROGEN 34 mg/dL (7-18); CALCIUM 8.6 mg/dL (8.5-10.1); CARBON DIOXIDE 25.6 mmol/L (21-32); CHLORIDE 105 mmol/L (98-107); COR CA(FOR HYPOALB) 10.1 mg/dL (8.5-10.1); SODIUM 137 mmol/L (136-145); TOTAL PROTEIN 5.8 g/dL (6.4-8.2); eGFR NON BLACK RACES 33 (>60)
[2019-05-17 06:01] LABS: CKMB % 0.4 % (<4); CREATINE KINASE 789 Units/L (26-192); CREATINE KINASE MB 3.3 ng/mL (0-4.0); TROPONIN I < 0.02 ng/mL (0-1.5)
[2019-05-17] MEDS: NYSTATIN POWDER TOP SCH ×2 (09:30→21:07)
[2019-05-17] MEDS ORDERED: BENTYL CAP 10 MG PO PRN (10:19)
[2019-05-17] MEDS ORDERED: ULTRAM PO PRN (10:19)
[2019-05-17] MEDS ORDERED: ALLEGRA ONE (11:02)
[2019-05-17] MEDS: FERROUS GLUCONATE PO SCH (11:08)
[2019-05-17] MEDS: ALLEGRA PO SCH (11:08)
[2019-05-17] MEDS: ALDACTONE TAB 25 MG PO SCH ×2 (11:08→21:00)
[2019-05-17] MEDS: SINEMET (PLAIN) 25/100 MG PO SCH ×2 (11:08→21:09)
[2019-05-17] MEDS: SYNTHROID 50 mcg TAB PO SCH (11:09)
[2019-05-17] MEDS: CELEXA PO SCH (11:09)
[2019-05-17] MEDS: MICRO K EXTEN CAP 10 MEQ PO SCH ×2 (11:25→21:07)
[2019-05-17] MEDS: TYLENOL 325 MG TAB PO PRN (13:09)
[2019-05-17] MEDS ORDERED: NS 1000 ML 1,000 ML IV SCH (18:18)
[2019-05-17] MEDS ORDERED: SEROquel TAB 25 mg PO SCH (21:00)
[2019-05-17] MEDS ORDERED: DIAZEPAM 2 MG PO SCH (21:00)
[2019-05-17] MEDS ORDERED: LIPITOR TAB 40 MG PO SCH (21:00)
[2019-05-17] MEDS: ROCEPHIN VIAL 1 GRAM 1 G in NS 100 ML IV + SPIKE MINIBAG* 100 ML IV SCH (21:09)
--- NOTE | 2019-05-17 21:20 | DR.H&P ---
H&P - History & Physical for Day of: H&P Date: 05/15/19 - Chief Complaint Chief Complaint: NASAL DRAINAGE, WEAKNESS, UNSTEADY GAIT - History of Present Illness History of Present Illness: IS A 79 YEAR OLD PATIENT OF . SHE PRESENTED TO THE ER WITH COMPLAINTS OF WEAKNESS AND UNSTEADY GAIT. SHE REPORTS TAKING LEVAQUIN 500MG PO DAILY FOR THE PAST 3 DAYS DUE TO SINUSITIS. SHE IS CURRENTLY RECEIVING RADIATION DUE TO A TUMOR BEHIND THE RIGHT EYE. SHE IS NOTED WITH REDNESS AND CLEAR DRAINAGE FROM THE RIGHT EYE. ON ARRIVAL, VITALS WERE 97.3-69-20-94%-138/97. LABS WERE OBTAINED. ABNORMAL LAB VALUES INCLUDE THE FOLLOWING: HGB 10.7, HCT 31.6, PLT COUNT 148, SODIUM 129, POTASSIUM 5.6, CHLORIDE 94, BUN 56, CREATININE 3.62, GLUCOSE 105, AST 90, ALT 11, ALK PHOS 33, CREATINE KINASE 1854, CK-MB 19.4, ALBUMIN 2.5. BLOOD CULTURES WERE OBTAINED. A CHEST XRAY WAS OBTAINED AND REVEALED: INTERSTITIAL PROMINENCE IS ACCENTUATED BY LOW LUNG VOLUMES, BUT MILD EDEMA IS NOT EXCLUDED. STABLE CARDIOMEGALY. EKG REVEALED: ATRIAL SENSED VENTRICULAR PACED COMPLEXES. SHE WAS STARTED ON NS AT 125ML/HR AND GIVEN ROCEPHIN 1G IV DAILY. SHE WAS ADMITTED FOR FURTHER EVALUATION AND TREATMENT OF DEHYDRATION, SINUS INFECTION, AND ACUTE ON CHRONIC RENAL FAILURE. WE WILL REVIEW HER HOME MEDICATIONS. OTHERWISE, WE WILL FOLLOW UP WITH AM LABS AND CONTINUE TO MONITOR. - Past Medical History Past Medical History: CT, Hypertension, Dyslipidemia, Renal Disease, Depression, Anxiety, Hypothyroidism, COPD, GERD, CHF - Past Surgical History Surgical History: Cholecystectomy, Other - Family History Family Medical History: Diabetes Mellitus, Coronary Artery Disease, Hypertension - Social History Does patient currently use any type of tobacco product: No Have you used tobacco products in the last 12 months: No Type of Tobacco Use: None Does any household member use tobacco: No Alcohol Use: None Drug Use: None - Medications Home Medications: No Known Allergies Allergy (Verified 05/28/17 16:06) CONTINUE taking the following medications sacubitril-valsartan [Entresto] 1 tab PO DAILY 05/15/19 [History] carbidopa-levodopa 1 tab PO BID 05/16/19 [History] citalopram 20 mg PO DAILY 05/16/19 [History] diazepam 2 mg PO HS 05/16/19 [History] dicyclomine 10 mg PO QID PRN 05/16/19 [History] fexofenadine 180 mg PO DAILY 05/16/19 [History] fluticasone furoate-vilanterol [Breo Ellipta] 1 inh INHALATION Q24H 05/16/19 [History] potassium chloride 10 meq PO BID 05/16/19 [History] quetiapine 25 mg PO QHS 05/16/19 [History] spironolactone 25 mg PO BID 05/16/19 [History] tramadol 50 mg PO TID PRN 05/16/19 [History] - Review of Systems Constitutional: Weakness Eyes: No Symptoms Reported ENT: See HPI, Nose Discharge Respiratory: No Symptoms Reported Cardiovascular: No Symptoms Reported Gastrointestinal: No Symptoms Reported Genitourinary: No Symptoms Reported Musculoskeletal: No Symptoms Reported Skin: No Symptoms Reported Neurological: Weakness - Physical Exam Vital Signs: Temperature 98.6 F Pulse Rate [Right Brachial] 84 Pulse Rate 65 Respiratory Rate 20 Blood Pressure [Right Calf] 80/46 Blood Pressure [Right Arm] 109/50 Blood Pressure 146/73 O2 Sat by Pulse Oximetry 96 Oriented: Normal Eyes: Normal Ear: Normal Nose: Normal Throat: Normal Respiratory: Diminished Throughout Cardiovascular: Normal : Normal Auscultation: Bowel Sounds: Normal Palpation: Normal Tenderness: Normal Skin: Normal Musculoskeletal: Instability Psychiatric: Normal Mood Description: Calm Affect: Normal Speech Pattern: Clear - Assessment/Plan (1) Acute dehydration Status: Acute Plan: ADMIT, NS AT 125ML/HR, CONTINUE TO MONITOR (2) Sinus infection Qualifiers: Sinusitis location: unspecified location Chronicity: unspecified Qualified Code(s): J32.9 - Chronic sinusitis, unspecified Status: Acute Plan: ROCEPHIN 1G IV DAILY, CONTINUE TO MONITOR (3) Acute on chronic renal failure Qualifiers: Acute renal failure type: unspecified Chronic kidney disease stage: unspecified stage Qualified Code(s): N17.9 - Acute kidney failure, unspecified; N18.9 - Chronic kidney disease, unspecified Status: Acute - Allergies Allergies/Adverse Reactions: Allergies Allergy/AdvReac Type Severity Reaction Status Date / Time No Known Allergies Allergy Verified 05/28/17 16:06
[2019-05-18 05:27] LABS: BASOPHILS # (AUTO) 0.1 X10^3/uL (0.0-0.1); BASOPHILS % (AUTO) 1.1 % (0.2-1.0); EOSINOPHILS # (AUTO) 0.2 x10^3/uL (0.0-0.2); EOSINOPHILS % (AUTO) 2.1 % (0.9-2.9); HEMATOCRIT 29.7 % (36.0-47.0); HEMOGLOBIN 9.8 g/dL (12.0-16.0); LYMPHOCYTES # (AUTO) 1.2 X10^3/uL (1.3-2.9); LYMPHOCYTES % (AUTO) 16.6 % (21.0-51.0); MEAN CORPUSCULAR HEMOGLOBIN 29.9 pg (27.0-34.0); MEAN CORPUSCULAR HGB CONC 32.9 g/dL (33.0-35.0); MEAN CORPUSCULAR VOLUME 91.1 fL (80.0-100.0); MEAN PLATELET VOLUME 7.1 fL (7.4-11.0); MONOCYTES # (AUTO) 0.8 x10^3/uL (0.3-0.8); MONOCYTES % (AUTO) 10.8 % (0.0-13.0); NEUTROPHILS % (AUTO) 69.4 % (42.0-75.0); PLATELET COUNT 171 X10^3/uL (150.0-450.0); RED BLOOD COUNT 3.27 X10^6/uL (3.5-5.4); RED CELL DISTRIBUTION WIDTH 13.7 % (11.6-16.5); WHITE BLOOD COUNT 7.3 X10^3/uL (3.6-10.0)
[2019-05-18 05:38] LABS: ALBUMIN 2.2 g/dL (3.4-5.0); CALCIUM 8.7 mg/dL (8.5-10.1); CARBON DIOXIDE 25.1 mmol/L (21-32); COR CA(FOR HYPOALB) 10.1 mg/dL (8.5-10.1); CREATININE 1.22 mg/dL (0.55-1.02); TOTAL PROTEIN 6.2 g/dL (6.4-8.2)
[2019-05-18] MEDS ORDERED: LOVENOX INJ 30 MG SYR SC SCH (09:00)
[2019-05-18] MEDS ORDERED: ALLEGRA ONE (09:10)
[2019-05-18] MEDS: MICRO K EXTEN CAP 10 MEQ PO SCH (09:17)
[2019-05-18] MEDS: SINEMET (PLAIN) 25/100 MG PO SCH (09:17)
[2019-05-18] MEDS: CELEXA PO SCH (09:17)
[2019-05-18] MEDS: ALDACTONE TAB 25 MG PO SCH (09:17)
[2019-05-18] MEDS: ALLEGRA PO SCH (09:17)
[2019-05-18] MEDS: SYNTHROID 50 mcg TAB PO SCH (09:17)
[2019-05-18] MEDS: FERROUS GLUCONATE PO SCH (09:17)
[2019-05-18] MEDS: NYSTATIN POWDER TOP SCH (09:18)
--- NOTE | 2019-05-18 10:51 | PCM.PROG ---
Progress Note - Progress Note for Day of Date of Exam: 05/17/19 - Subjective Subjective: IS BEING TREATED FOR DEHYDRATION, SINUS INFECTION, HYPOTENSION, AND ACUTE ON CHRONIC RENAL FAILURE. TODAY, SHE IS ALERT, LYING IN BED ON MORNING ROUNDS. SHE IS NOTED TO BE DISORIENTED THIS MORNING. ON EXAMINATION, HEART IS REGULAR IN RATE AND RHYTHM. BILATERAL LUNGS ARE NOTED WITH DIMINISHED LUNG SOUNDS THROUGHOUT. ABDOMEN IS ROUND, SOFT, AND NON-TENDER. NORMAL BOWEL SOUNDS ARE NOTED IN ALL QUADRANTS. HER VITALS THIS MORNING ARE: 97.7-83-20-96%-87/41. LABS WERE OBTAINED. ABNORMAL LAB VALUES INCLUDE THE FOLLOWING: RBC 3.20, HGB 9.8, HCT 28.9, PLT COUNT 148, BUN 34, CREATININE 1.60, AST 65, ALK PHOS 29, CREATINE KINASE 789, TOTAL PROTEIN 5.8, ALBUMIN 2.1. BLOOD CULTURES ARE PENDING. SHE IS CURRENTLY RECEIVING NS AT 125ML/HR, ROCEPHIN 1G IV DAILY, AND HOME MEDICATIONS WERE RESUMED. WE WILL CONTINUE WITH CURRENT PLAN OF CARE TODAY. OTHERWISE, WE WILL FOLLOW UP WITH AM LABS AND CONTINUE TO MONITOR. - Past Medical Family Social History Past Med/Fam/Surg Hx: No changes since H&P Allergies: Allergies No Known Allergies Allergy (Verified 05/28/17 16:06) - Review of Systems ROS: No change since H&P - Vital Signs and I&O's Vital Signs: Temperature 97.6 F Pulse Rate [Right Brachial] 100 Pulse Rate 65 Respiratory Rate 20 Blood Pressure [Right Calf] 80/46 Blood Pressure [Right Arm] 134/60 Blood Pressure 146/73 O2 Sat by Pulse Oximetry 99 Intake and Output: Intake & Output 05/15/19 05/16/19 05/17/19 05/18/19 11:59 11:59 11:59 11:59 Intake Total 100 / 100 2734 / 2734 3366 / 3366 Output Total 550 / 550 2940 / 2940 1400 / 1400 Balance -450 / -450 -206 / -206 1965 - Physical Exam Oriented: Normal Eyes: Normal Ear: Normal Nose: Normal Throat: Normal Respiratory: Generalized, Diminished Cardiovascular: Normal : Normal Auscultation: Bowel Sounds: Normal Palpation: Normal Tenderness: Normal Skin: Normal Musculoskeletal: Instability Psychiatric: Normal Mood Description: Calm Affect: Normal Speech Pattern: Clear, Appropriate - Laboratory and Diagnostics Result Diagrams: 05/18/19 04:39 05/18/19 04:39 Labs: 05/15/19 21:06 Blood Blood Culture - Preliminary 05/15/19 20:58 Blood Blood Culture - Preliminary Laboratory WBC 7.3 X10^3/uL (3.6-10.0) 05/18/19 04:39 RBC 3.27 X10^6/uL (3.5-5.4) L 05/18/19 04:39 Hgb 9.8 g/dL (12.0-16.0) L 05/18/19 04:39 Hct 29.7 % (36.0-47.0) L 05/18/19 04:39 MCV 91.1 fL (80.0-100.0) 05/18/19 04:39 MCH 29.9 pg (27.0-34.0) 05/18/19 04:39 MCHC 32.9 g/dL (33.0-35.0) L 05/18/19 04:39 RDW 13.7 % (11.6-16.5) 05/18/19 04:39 Plt Count 171 X10^3/uL (150.0-450.0) 05/18/19 04:39 MPV 7.1 fL (7.4-11.0) L 05/18/19 04:39 Neut % (Auto) 69.4 % (42.0-75.0) 05/18/19 04:39 Lymph % (Auto) 16.6 % (21.0-51.0) L 05/18/19 04:39 [place] % (Auto) 10.8 % (0.0-13.0) 05/18/19 04:39 Eos % (Auto) 2.1 % (0.9-2.9) 05/18/19 04:39 Baso % (Auto) 1.1 % (0.2-1.0) H 05/18/19 04:39 Neut # (Auto) 5.0 x10^3/uL (2.2-4.8) H 05/18/19 04:39 Lymph # (Auto) 1.2 X10^3/uL (1.3-2.9) L 05/18/19 04:39 [place] # (Auto) 0.8 x10^3/uL (0.3-0.8) 05/18/19 04:39 Eos # (Auto) 0.2 x10^3/uL (0.0-0.2) 05/18/19 04:39 Baso # (Auto) 0.1 X10^3/uL (0.0-0.1) 05/18/19 04:39 Absolute Nucleated RBC 0.0 /100WBC 05/18/19 04:39 Sodium 137 mmol/L (136-145) 05/18/19 04:39 Corrected Sodium 138 mmol/L (136-145) 05/18/19 04:39 Potassium 4.2 mmol/L (3.5-5.1) 05/18/19 04:39 Chloride 105 mmol/L (98-107) 05/18/19 04:39 Carbon Dioxide 25.1 mmol/L (21-32) 05/18/19 04:39 BUN 16 mg/dL (7-18) 05/18/19 04:39 Creatinine 1.22 mg/dL (0.55-1.02) H 05/18/19 04:39 Est GFR (MDRD) Af Amer 55 (>60) L 05/18/19 04:39 Est GFR (MDRD) Non-Af 45 (>60) L 05/18/19 04:39 Glucose 148 mg/dL (65-99) H 05/18/19 04:39 Lactic Acid 0.8 mmol/L (0.4-2.0) 05/15/19 20:58 Calcium 8.7 mg/dL (8.5-10.1) 05/18/19 04:39 Corrected Calcium 10.1 mg/dL (8.5-10.1) 05/18/19 04:39 Total Bilirubin 0.20 mg/dL (0.2-1.0) 05/18/19 04:39 AST 45 Units/L (15-37) H 05/18/19 04:39 ALT 30 Units/L (12-78) 05/18/19 04:39 Alkaline Phosphatase 32 Units/L (46-116) L 05/18/19 04:39 Creatine Kinase 789 Units/L (26-192) H 05/17/19 04:34 CK-MB (CK-2) 3.3 ng/mL (0-4.0) 05/17/19 04:34 CK/CKMB % Calc 0.4 % (<4) 05/17/19 04:34 Troponin I < 0.02 ng/mL (0-1.5) 05/17/19 04:34 B-Natriuretic Peptide 6.2 pg/mL (0-79) 05/16/19 04:52 Total Protein 6.2 g/dL (6.4-8.2) L 05/18/19 04:39 Albumin 2.2 g/dL (3.4-5.0) L 05/18/19 04:39 Globulin 4.0 g/dL (2.5-4.5) 05/18/19 04:39 Albumin/Globulin Ratio 0.6 Ratio (1.1-2.1) L 05/18/19 04:39 Specimen Type Catherized urine 05/16/19 02:40 Urine Color Yellow (YELLOW) 05/16/19 02:40 Urine Appearance Hazy (CLEAR) 05/16/19 02:40 Urine pH 5.0 (5.0 - 8.0) 05/16/19 02:40 Ur Specific [place] 1.010 (1.000-1.030) 05/16/19 02:40 Urine Protein 1+ (NEGATIVE) 05/16/19 02:40 Urine Glucose (UA) Negative (NEGATIVE) 05/16/19 02:40 Urine Ketones Negative (NEGATIVE) 05/16/19 02:40 Urine Occult Blood 3+ (NEGATIVE) 05/16/19 02:40 Urine Nitrite Negative (NEGATIVE) 05/16/19 02:40 Urine Bilirubin Negative (NEGATIVE) 05/16/19 02:40 Urine Urobilinogen Normal (NORMAL) 05/16/19 02:40 Ur Leukocyte Esterase Negative (NEGATIVE) 05/16/19 02:40 Urine RBC 3-5 /HPF (0-3) A 05/16/19 02:40 Urine WBC None seen /HPF (0-5) 05/16/19 02:40 Ur Squamous Epith Cells Negative /HPF (NEGATIVE) 05/16/19 02:40 Urine Bacteria Negative /HPF (NEGATIVE) 05/16/19 02:40 Urine Mucus Few /HPF (NEGATIVE) 05/16/19 02:40 Ur Culture Indicated? No/not indicated 05/16/19 02:40 - Plan (1) Acute dehydration Status: Acute Plan: NS AT 125ML/HR, CONTINUE TO MONITOR (2) Sinus infection Status: Acute Qualifiers: Sinusitis location: unspecified location Chronicity: unspecified Qualified Code(s): J32.9 - Chronic sinusitis, unspecified Plan: ROCEPHIN 1G IV DAILY, CONTINUE TO MONITOR (3) Acute on chronic renal failure Status: Acute Qualifiers: Acute renal failure type: unspecified Chronic kidney disease stage: unspecified stage Qualified Code(s): N17.9 - Acute kidney failure, unspecified; N18.9 - Chronic kidney disease, unspecified
--- NOTE | 2019-05-18 11:36 | RAD ---
HISTORYSOBSTUDYCHEST, 1 VIEW, done [id number].FINDINGSLeft-sided pacemaker/defibrillator is again seen with intact mel ds.The trachea is midline. The cardiac silhouette is upper normal with aortic uncoiling and atherosc lerotic calcification of the aortic arch.. The lungs are clear without focal infiltrate or effusion. No evidence of CHF or pneumothorax is seen. The bony thorax is unremarkable.IMPRESSIONPostsurgical ch anges as noted above.Hypertensive configuration.No acute cardiopulmonary disease.Electronically marielle d by: QIAN HARLEY (May 18, 2019 11:35:11)
[2019-05-18 13:29] VITALS: BP 105/64
== END 2019-05-18 12:45 | disposition home health service (06) | DRG 153 ==
LOC: ER 20:10 → MED/SURG 23:56
PROVIDERS: ADMIT Internal Medicine; ATTEND Internal Medicine
DX: J32.8 Other chronic sinusitis; J20.8 Acute bronchitis due to other specified organisms; K21.9 Gastro-esophageal reflux disease without esophagitis; R26.89 Other abnormalities of gait and mobility; E11.65 Type 2 diabetes mellitus with hyperglycemia; I95.89 Other hypotension; E86.0 Dehydration; H54.40 Blindness, one eye, unspecified eye; R94.31 Abnormal electrocardiogram [ECG] [EKG]; I13.0 Hypertensive heart and chronic kidney disease with heart failure and stage 1 through stage 4 chronic kidney disease, or unspecified chronic kidney disease; E03.8 Other specified hypothyroidism; N17.8 Other acute kidney failure; I50.9 Heart failure, unspecified; R53.1 Weakness; N18.9 Chronic kidney disease, unspecified; E78.2 Mixed hyperlipidemia; J44.9 Chronic obstructive pulmonary disease, unspecified; C69.91 Malignant neoplasm of unspecified site of right eye
CPT/HCPCS: 36415; 71010; 71045; 80053; 81001; 82550; 82553; 83605; 83880; 84484; 85025; 87040; 93005; 94760; 96365; 96367; 96374; 97116; 97162; 97530; 99284; A4222; J0696; J1650; J1940; J3490; J7030; J7050

== ENCOUNTER 2019-12-07 13:50 | Observation (INO) ==
--- NOTE | 2019-12-07 14:25 | DR.DIZZY ---
HPI Time seen Time Seen by Provider: 12/07/19 14:16 PCP Primary Care Physician: Amanda Melchor HERBOLOGIST Complaint Chief Complaint:: A little dizzy and weak yesterday but woke up this morning with worsening dizziness and severe right side weakness, and GAGE. States she feels like he body is wobbling. Had a fall last night due to weak and dizzy. COVID-19 Coronavirus risk:travel/contact w/high risk person: No Has patient experienced Coronavirus symptoms: No Coronavirus symptoms experienced: Shortness of Breath Source History Provided: Patient Mode of Arrival Mode of Arrival: Wheelchair Timing Onset of Chief Complaint: 12/06/19 Context Stroke Symptoms: None PMH PMH Past Medical History: Yes Past Medical History: Anxiety, CHF, COPD, Depression, Dyslipidemia, GERD, Hypertension, Hypothyroidism, IA and Renal Disease Past Surgical History: Yes Surgical History: Cholecystectomy and Other Family History History of Family Medical Conditions: Yes Family Medical History: Diabetes Mellitus, Coronary Artery Disease and Hypertension Social History Does patient currently use any type of tobacco product: No Have you used tobacco products in the last 12 months: No Type of Tobacco Use: None Does any household member use tobacco: No Alcohol Use: None Do you use any recreational Drugs:: No Lives With: Spouse Lives Where: Home Travel Risk Coronavirus risk:travel/contact w/high risk person: No Has patient experienced Coronavirus symptoms: No Coronavirus symptoms experienced: Shortness of Breath Infectious screening In the last 2 months have you had wt loss of >10#?: NO Have you had fever, night sweats or hemotysis?: No Have you traveled outside the country in the last 6 months?: No Isolation: Standard ROS Review of Systems Constitutional: Weakness Eyes: No Symptoms Reported ENTM: No Symptoms Reported Respiratoy: No Symptoms Reported Cardiovascular: No Symptoms Reported Gastrointestinal/Abdominal: No Symptoms Reported Genitourinary: No Symptoms Reported Neurological: See HPI Musculoskeletal: See HPI Integumentary: No Symptoms Reported Hematologic/Lymphatic: No Symptoms Reported Endocrine: No Symptoms Reported Psychiatric: No Symptoms Reported All Other Systems: Reviewed and Negative PE Vital Signs Vitals: Temperature 97.1 F Pulse Rate 76 Respiratory Rate 33 Blood Pressure [Right Calf] 80/46 Blood Pressure [Right Arm] 105/64 Blood Pressure 122/59 O2 Sat by Pulse Oximetry 94 General Limitations: No Limitations General Appearance: Alert Head Head Exam: Normal Inspection, Atraumatic and Normocephalic Eyes Eye exam: Normal Appearance, PERRL and Other (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) Pupils: Regular, Round: Bilateral ENT ENT Exam: Normal Exam, Normal Oropharynx and Mucous Membranes Moist Neck Neck Exam: Normal Inspection, Full ROM and Trachea Midline; negative Lymphadenopathy Chest Chest Inspection: Normal Inspection and Symmetric Chest Wall Rise; negative Tenderness Respiratory Respiratory Exam: Normal Lung Sounds Bilat; negative Accessory Muscle Use and Chest Wall Tenderness Respiratory Exam: Bilateral: Clear to Auscultation Cardiovascular Cardiovascular Exam: Regular Rate, Normal Rhythm and Normal Heart Sounds Abdominal Exam Abdominal Exam: Normal Inspection; negative Tenderness Rectal Rectal Exam: Deferred Extremeties Extremities Exam: Normal Inspection, Full ROM and Tenderness; negative Edema Back Back Exam: Normal Inspection and Full ROM; negative Tenderness Neurologic Neurological Exam: Alert and Oriented X3 Cranial Nerve Exam: EOM Function (II, III, IV, ): Left Abnormal (OL can not mo ve medially ) Cerebellar Function: Other (pt required assistance to move from wheelchair to bed ) Motor Strength - LUE: 5/5 Motor Strength - RUE: 2/5 Motor Strength - LLE: 5/5 Motor Strength - RLE: 5/5 Psychiatric Psychiatric Exam: Normal Affect and Normal Mood Skin Skin Exam: Warm, Dry and Intact ROR Labs Reviewed Result Diagrams: 12/07/19 14:47 12/07/19 14:47 Laboratory: WBC 8.9 X10^3/uL (3.6-10.0) 12/07/19 14:47 RBC 4.09 X10^6/uL (3.5-5.4) 12/07/19 14:47 Hgb 12.0 g/dL (12.0-16.0) 12/07/19 14:47 Hct 36.8 % (36.0-47.0) 12/07/19 14:47 MCV 90.0 fL (80.0-100.0) 12/07/19 14:47 MCH 29.3 pg (27.0-34.0) 12/07/19 14:47 MCHC 32.6 g/dL (33.0-35.0) L 12/07/19 14:47 RDW 14.1 % (11.6-16.5) 12/07/19 14:47 Plt Count 199 X10^3/uL (150.0-450.0) 12/07/19 14:47 MPV 7.0 fL (7.4-11.0) L 12/07/19 14:47 Neut % (Auto) 65.6 % (42.0-75.0) 12/07/19 14:47 Lymph % (Auto) 20.7 % (21.0-51.0) L 12/07/19 14:47 [place] % (Auto) 11.3 % (0.0-13.0) 12/07/19 14:47 Eos % (Auto) 1.6 % (0.9-2.9) 12/07/19 14:47 Baso % (Auto) 0.8 % (0.2-1.0) 12/07/19 14:47 Neut # (Auto) 5.8 x10^3/uL (2.2-4.8) H 12/07/19 14:47 Lymph # (Auto) 1.8 X10^3/uL (1.3-2.9) 12/07/19 14:47 [place] # (Auto) 1.0 x10^3/uL (0.3-0.8) H 12/07/19 14:47 Eos # (Auto) 0.1 x10^3/uL (0.0-0.2) 12/07/19 14:47 Baso # (Auto) 0.1 X10^3/uL (0.0-0.1) 12/07/19 14:47 Absolute Nucleated RBC 0.0 /100WBC 12/07/19 14:47 PT 12.7 SECONDS (11.8-14.3) 12/07/19 14:47 INR Target Range - 12/07/19 14:47 INR 0.98 (0.8-1.3) 12/07/19 14:47 APTT 32.4 SECONDS (22.9-36.5) 12/07/19 14:47 PTT Comment - 12/07/19 14:47 Sodium 139 mmol/L (136-145) 12/07/19 14:47 Corrected Sodium TNP 12/07/19 14:47 Potassium 4.7 mmol/L (3.5-5.1) 12/07/19 14:47 Chloride 103 mmol/L (98-107) 12/07/19 14:47 Carbon Dioxide 29.6 mmol/L (21-32) 12/07/19 14:47 BUN 24 mg/dL (7-18) H 12/07/19 14:47 Creatinine 1.13 mg/dL (0.55-1.02) H 12/07/19 14:47 Est GFR (MDRD) Af Amer 60 (>60) 12/07/19 14:47 Est GFR (MDRD) Non-Af 49 (>60) L 12/07/19 14:47 Glucose 100 mg/dL (65-99) H 12/07/19 14:47 Calcium 9.5 mg/dL (8.5-10.1) 12/07/19 14:47 Corrected Calcium 10.1 mg/dL (8.5-10.1) 12/07/19 14:47 Total Bilirubin 0.40 mg/dL (0.2-1.0) 12/07/19 14:47 AST 20 Units/L (15-37) 12/07/19 14:47 ALT 10 Units/L (12-78) L 12/07/19 14:47 Alkaline Phosphatase 76 Units/L (46-116) 12/07/19 14:47 Troponin I < 0.02 ng/mL (0-1.5) 12/07/19 14:47 Total Protein 8.0 g/dL (6.4-8.2) 12/07/19 14:47 Albumin 3.3 g/dL (3.4-5.0) L 12/07/19 14:47 Globulin 4.7 g/dL (2.5-4.5) H 12/07/19 14:47 Albumin/Globulin Ratio 0.7 Ratio (1.1-2.1) L 12/07/19 14:47 Other Results Comments: EKHG atrial paced ventricular paced rhythm 74 bpm XRAY XRAY Interpreted by: Radiologist X-ray Results: ct head nad EKG Rate: 74 Opioid Opioid Risk Tool Age (Miguel box if 16-45): No History of Preadolescent Sexual Abuse: No Total: 0 Total Score Risk Category: Low Risk Copyright: [facility] predicting aberrant behaviors Diagnosis Discharge Problem: Weakness, Dizziness Instructions Forms: Precautions for COVID19 Patient Portal Social Distancing
[2019-12-07] MEDS ORDERED: NORCO 5/325 MG TAB PO ONE (14:44)
[2019-12-07] MEDS ORDERED: NORCO 5/325 MG TAB ONE (14:46)
--- NOTE | 2019-12-07 14:47 | CT ---
HISTORYDIZZINESS, LEFT SIDE WEAKNESS, NUMEROUS FALLSSTUDYBRAIN W/O CONCOMPARISONNone.TECHNIQUEMultiple axial images of the head without contrast. Dose reduction techniques including Automated Exposure Control (AEC) and adjustment of mA and kV were utilized.FINDINGSAge related cortical atrophy and chronic small vessel ischemic changes. 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 Mild to severe mucosal thickening of the visualized paranasal sinuses, which is worse within the left maxillary sinus. The mastoid air cells are clear. The osseous structures appear intact.]IMPRESSIONOne. No acute intracranial pathology. If clinically concerned for acute ischemia/infarction, MRI of the brain is more sensitive.Two. Other chronic findings as above.Electronically signed by: ANTHONY CORTES (Dec 07, 2019 14:46:50)
[2019-12-07 15:00] LABS: BASOPHILS # (AUTO) 0.1 X10^3/uL (0.0-0.1); BASOPHILS % (AUTO) 0.8 % (0.2-1.0); EOSINOPHILS # (AUTO) 0.1 x10^3/uL (0.0-0.2); EOSINOPHILS % (AUTO) 1.6 % (0.9-2.9); HEMATOCRIT 36.8 % (36.0-47.0); LYMPHOCYTES # (AUTO) 1.8 X10^3/uL (1.3-2.9); LYMPHOCYTES % (AUTO) 20.7 % (21.0-51.0); MEAN CORPUSCULAR HEMOGLOBIN 29.3 pg (27.0-34.0); MEAN CORPUSCULAR HGB CONC 32.6 g/dL (33.0-35.0); MONOCYTES % (AUTO) 11.3 % (0.0-13.0); NEUTROPHILS # (AUTO) 5.8 x10^3/uL (2.2-4.8); NEUTROPHILS % (AUTO) 65.6 % (42.0-75.0); PLATELET COUNT 199 X10^3/uL (150.0-450.0); RED BLOOD COUNT 4.09 X10^6/uL (3.5-5.4); RED CELL DISTRIBUTION WIDTH 14.1 % (11.6-16.5); WHITE BLOOD COUNT 8.9 X10^3/uL (3.6-10.0)
[2019-12-07] MEDS ORDERED: ASPIRIN PO ONE (15:00)
[2019-12-07 15:11] LABS: ALANINE AMINOTRANSFERASE 10 Units/L (12-78); ALBUMIN 3.3 g/dL (3.4-5.0); ALKALINE PHOSPHATASE 76 Units/L (46-116); ASPARTATE AMINO TRANSFERASE 20 Units/L (15-37); BLOOD UREA NITROGEN 24 mg/dL (7-18); CALCIUM 9.5 mg/dL (8.5-10.1); CARBON DIOXIDE 29.6 mmol/L (21-32); CHLORIDE 103 mmol/L (98-107); COR CA(FOR HYPOALB) 10.1 mg/dL (8.5-10.1); CREATININE 1.13 mg/dL (0.55-1.02); SODIUM 139 mmol/L (136-145); TROPONIN I < 0.02 ng/mL (0-1.5); eGFR NON BLACK RACES 49 (>60)
[2019-12-07] MEDS ORDERED: ASPIRIN ONE (15:18)
[2019-12-07] MEDS ORDERED: SEROquel TAB 25 mg PO SCH (17:45)
[2019-12-07] MEDS ORDERED: FLUTICASONE FUROATE VILANTEROL IN SCH (17:45)
[2019-12-07] MEDS: SINEMET (PLAIN) 25/100 MG PO SCH ×2 (18:02→20:55)
[2019-12-07 18:33] VITALS: BMI 41.2
[2019-12-07] MEDS: ALDACTONE TAB 25 MG PO SCH (20:52)
[2019-12-07] MEDS: LIPITOR TAB 40 MG PO SCH (20:53)
[2019-12-07] MEDS: MICRO K EXTEN CAP 10 MEQ PO SCH (20:53)
[2019-12-07] MEDS: REQUIP PO SCH (20:54)
[2019-12-07] MEDS: SEROquel TAB 25 mg PO SCH (20:54)
[2019-12-07] MEDS: RESTORIL CAP 30 MG PO PRN (20:55)
[2019-12-07] MEDS: ULTRAM PO PRN (20:55)
[2019-12-08] MEDS ORDERED: SYNTHROID 50 mcg TAB ONE (05:52)
[2019-12-08] MEDS: SYNTHROID 50 mcg TAB PO SCH (06:06)
--- NOTE | 2019-12-08 06:06 | RAD ---
HISTORYCoughSTUDYChest AP [id number] is a pacemaker present on the left. The heart is enlarged. No congestive heart failure is noted. The aorta is calcified. The lung sofia are clear. Bony thorax is unremarkable.IMPRESSIONCardiomegaly without congestive heart failureNo definite acute infiltratesE lectronically signed by: KRYS MAHER (Dec 08, 2019 06:06:31)
[2019-12-08 06:07] LABS: BASOPHILS % (AUTO) 0.6 % (0.2-1.0); EOSINOPHILS # (AUTO) 0.1 x10^3/uL (0.0-0.2); EOSINOPHILS % (AUTO) 2.1 % (0.9-2.9); HEMATOCRIT 36.9 % (36.0-47.0); HEMOGLOBIN 12.1 g/dL (12.0-16.0); LYMPHOCYTES # (AUTO) 1.5 X10^3/uL (1.3-2.9); LYMPHOCYTES % (AUTO) 23.1 % (21.0-51.0); MEAN CORPUSCULAR HEMOGLOBIN 29.6 pg (27.0-34.0); MEAN CORPUSCULAR HGB CONC 32.9 g/dL (33.0-35.0); MEAN CORPUSCULAR VOLUME 89.8 fL (80.0-100.0); MONOCYTES # (AUTO) 0.7 x10^3/uL (0.3-0.8); MONOCYTES % (AUTO) 10.9 % (0.0-13.0); NEUTROPHILS % (AUTO) 63.3 % (42.0-75.0); PLATELET COUNT 204 X10^3/uL (150.0-450.0); RED BLOOD COUNT 4.11 X10^6/uL (3.5-5.4); RED CELL DISTRIBUTION WIDTH 13.8 % (11.6-16.5); WHITE BLOOD COUNT 6.3 X10^3/uL (3.6-10.0)
[2019-12-08 06:35] LABS: ALANINE AMINOTRANSFERASE 12 Units/L (12-78); ALBUMIN 3.2 g/dL (3.4-5.0); ALKALINE PHOSPHATASE 77 Units/L (46-116); ASPARTATE AMINO TRANSFERASE 23 Units/L (15-37); BLOOD UREA NITROGEN 20 mg/dL (7-18); CALCIUM 9.4 mg/dL (8.5-10.1); CARBON DIOXIDE 32.5 mmol/L (21-32); CHLORIDE 103 mmol/L (98-107); CREATININE 1.08 mg/dL (0.55-1.02); SODIUM 141 mmol/L (136-145); TOTAL PROTEIN 7.9 g/dL (6.4-8.2); eGFR NON BLACK RACES 52 (>60)
[2019-12-08] MEDS: ULTRAM PO PRN (07:50)
[2019-12-08] MEDS ORDERED: ALLEGRA ONE (08:25)
[2019-12-08] MEDS: ALDACTONE TAB 25 MG PO SCH ×2 (08:48→20:58)
[2019-12-08] MEDS: CELEXA PO SCH (08:49)
[2019-12-08] MEDS: FERROUS GLUCONATE PO SCH (08:49)
[2019-12-08] MEDS: ALLEGRA PO SCH (08:49)
[2019-12-08] MEDS: LASIX PO SCH (08:49)
[2019-12-08] MEDS: SINEMET (PLAIN) 25/100 MG PO SCH ×2 (08:50→20:56)
[2019-12-08] MEDS: MICRO K EXTEN CAP 10 MEQ PO SCH ×2 (08:50→20:59)
[2019-12-08] MEDS ORDERED: SYNTHROID 25 mcg TAB PO SCH (09:00)
[2019-12-08] MEDS ORDERED: PATIENT'S HOME MEDICATION (Ferrous Sulfate 325 MG) PO SCH (09:00)
--- NOTE | 2019-12-08 09:41 | VAS ---
HISTORY:Left-sided weaknessStudy: Bilateral Carotid UltrasoundComparison:NoneTechnique: Multiple orellana scale and color flow Doppler images of the right and left carotid arterial system were obtained. The vertebral arterial system was evaluated as well.Findings:Normal color flow Doppler is seen throughout the right and left carotid arterial system. There is atherosclerotic plaque present at the bilateral carotid bifurcations. Peak systolic velocity in the right ICA is 102.5 cm/sec. Peak systolic velocity in the left ICA is 63.1 cm/sec. The right ICA/CCA ratio is 1.87. The left ICA/CCA ratio is0.81. Antegrade flow is seen in the left vertebral artery. Right vertebral artery not visualized.IMPRESSION:1. No evidence of hemodynamically significant ICA stenosis by velocity criteria.2. Normal antegrade flow in the left vertebral artery. The right vertebral artery was not visualized. Consider correlation with CTA of the neck if indicated.Electronically signed by: IRMA TORRES (Dec 08, 2019 09:40:30)
[2019-12-08] MEDS: PATIENT'S HOME MEDICATION (Sacubitril-Valsartan [Entresto] 1 TAB) PO SCH (10:00)
[2019-12-08] MEDS: LOVENOX INJ 40 MG SYR SC SCH (11:00)
[2019-12-08] MEDS ORDERED: NS 500 ML IV 500 ML IV ONE (12:44)
--- NOTE | 2019-12-08 13:53 | DR.H&P ---
H&P - History & Physical for Day of: H&P Date: 12/07/19 - Chief Complaint Chief Complaint: LEFT LEG WEAKNESS, FALL, DIZZINESS - History of Present Illness History of Present Illness: PT IS 79 WF ER ADMISSION AFTER FALL THIS AM DUE TO ACUTE LEFT LEG WEAKNESS. PT STATES SHE WENT TO GET OUT OF BED AND HER LEFT LEG "WOULDNT WORK" AND SHE REPORTS FALL AT THAT TIME WITH WEAKNESS. PT HAS PMH OF CAD, CHF, HAD DEFIBRILLATOR, HTN, OA. PT HAD CT HEAD IN ER WITHOUT ACUTE FINDINGS. PT ADMITTED FOR FALL, ACUTE WEAKNESS, R/O CVA. - Past Medical History Past Medical History: OR, Hypertension, Dyslipidemia, Renal Disease, Depression, Anxiety, Hypothyroidism, COPD, GERD, CHF - Past Surgical History Surgical History: Cholecystectomy, Other - Family History Family Medical History: Diabetes Mellitus, Coronary Artery Disease, Hypertension - Social History Does patient currently use any type of tobacco product: No Have you used tobacco products in the last 12 months: No Type of Tobacco Use: None Does any household member use tobacco: No Alcohol Use: None Drug Use: None - Medications Home Medications: No Known Allergies Allergy (Verified 05/28/17 16:06) - Review of Systems Constitutional: Weakness Eyes: No Symptoms Reported (RIGHT EYE), Redness ENT: No Symptoms Reported Respiratory: SOB with Excertion Cardiovascular: Edema Musculoskeletal: Back Pain, Leg Pain Skin: Bruising Neurological: Weakness - Physical Exam Vital Signs: Temperature 97.9 F Pulse Rate [Right Brachial] 66 Pulse Rate 61 Respiratory Rate 20 Blood Pressure [Right Calf] 80/46 Blood Pressure [Right Arm] 102/53 Blood Pressure 121/52 O2 Sat by Pulse Oximetry 99 Oriented: Normal Eyes: Redness Ear: Normal Nose: Normal Throat: Dry Respiratory: RLL Diminished, LLL Diminished Cardiovascular: Normal, Edema Auscultation: Bowel Sounds: Normal Palpation: Normal Tenderness: Normal Skin: Decreased Turgur Musculoskeletal: Leg, Back:Thoracic, Back:Lumbar, Motor Deficit - Assessment/Plan (1) Left-sided weakness Status: Acute Plan: admit, r/o cva. bp and lipid control, cardiac monitoring. ct head on on admission. verify and resume home medication. pt/ot consult, echo, carotdi us (2) Weakness Status: Acute (3) Chronic a-fib Status: Acute (4) CHF (congestive heart failure) Status: Acute (5) Hypertension Status: Acute (6) Congestive heart failure Qualifiers: Heart failure type: unspecified Heart failure chronicity: acute on chronic Qualified Code(s): I50.9 - Heart failure, unspecified Status: Acute - Allergies Allergies/Adverse Reactions: Allergies Allergy/AdvReac Type Severity Reaction Status Date / Time No Known Allergies Allergy Verified 05/28/17 16:06
--- NOTE | 2019-12-08 14:42 | CT ---
HISTORY:Left-sided weaknessStudy: CT angiography of the neckComparison:Carotid doppler same dayTechnique:Multiple axial images of the neck obtained after the administration of IV contrast using CTA protocol. 3D reconstructions were performed utilizing radial maximum intensity projection imaging. Dose reduction techniques including Automated Exposure Control (AEC) and adjustment of mA and kV were utilized.Findings:The bilateral carotid arteries demonstrated tortuous, retropharyngeal course without evidence of significant ICA stenosis by NASCET criteria. There is calcified plaque present at the distal right common carotid artery. No evidence of dissection. Normal appearance of the visualized aortic arch. Bilateral vertebral arteries are patent. The visualized lungs are clear. There is reversal of normal cervical lordosis with advanced multilevel disc disease most prominent at C4-C5, C5-C6 and C6-C7 with uncovertebral spurring resulting in bilateral foraminal stenosis.IMPRESSION:1. Tortuous, retropharyngeal course of the carotid arteries without evidence of significant stenosis by NASCET criteria.2. Patent bilateral vertebral arteries.3. Advanced cervical disc disease.Electronically signed by: IRMA TORRES (Dec 08, 2019 14:42:11)
[2019-12-08] MEDS: NEURONTIN CAP 100 MG PO SCH ×2 (18:25→21:00)
[2019-12-08] MEDS ORDERED: NEURONTIN CAP 100 MG ONE (18:29)
[2019-12-08] MEDS: REQUIP PO SCH (20:55)
[2019-12-08] MEDS: ENTRESTO 24/26 MG TAB PO SCH (20:56)
[2019-12-08] MEDS: SEROquel TAB 25 mg PO SCH (20:56)
[2019-12-08] MEDS: PROTONIX TAB 40 MG PO SCH (20:57)
[2019-12-08] MEDS: COREG TAB 12.5 MG PO SCH (20:57)
[2019-12-08] MEDS: LIPITOR TAB 40 MG PO SCH (20:59)
[2019-12-08] MEDS: RESTORIL CAP 30 MG PO PRN (21:00)
[2019-12-08] MEDS ORDERED: CRESTOR TAB 10 MG PO SCH (21:00)
[2019-12-08] MEDS ORDERED: PATIENT'S HOME MEDICATION (Rosuvastatin 40 MG) PO SCH (21:00)
[2019-12-09] MEDS: NEURONTIN CAP 100 MG PO SCH ×2 (06:00→14:23)
[2019-12-09 06:08] LABS: BASOPHILS # (AUTO) 0.1 X10^3/uL (0.0-0.1); BASOPHILS % (AUTO) 0.9 % (0.2-1.0); EOSINOPHILS # (AUTO) 0.2 x10^3/uL (0.0-0.2); EOSINOPHILS % (AUTO) 2.7 % (0.9-2.9); HEMATOCRIT 36.5 % (36.0-47.0); HEMOGLOBIN 11.9 g/dL (12.0-16.0); LYMPHOCYTES # (AUTO) 1.6 X10^3/uL (1.3-2.9); LYMPHOCYTES % (AUTO) 25.7 % (21.0-51.0); MEAN CORPUSCULAR HEMOGLOBIN 29.4 pg (27.0-34.0); MEAN CORPUSCULAR HGB CONC 32.7 g/dL (33.0-35.0); MEAN CORPUSCULAR VOLUME 89.8 fL (80.0-100.0); MEAN PLATELET VOLUME 7.4 fL (7.4-11.0); MONOCYTES # (AUTO) 0.7 x10^3/uL (0.3-0.8); MONOCYTES % (AUTO) 10.9 % (0.0-13.0); NEUTROPHILS # (AUTO) 3.8 x10^3/uL (2.2-4.8); NEUTROPHILS % (AUTO) 59.8 % (42.0-75.0); PLATELET COUNT 184 X10^3/uL (150.0-450.0); RED BLOOD COUNT 4.06 X10^6/uL (3.5-5.4); RED CELL DISTRIBUTION WIDTH 13.6 % (11.6-16.5); WHITE BLOOD COUNT 6.4 X10^3/uL (3.6-10.0)
[2019-12-09 06:31] LABS: ALANINE AMINOTRANSFERASE 20 Units/L (12-78); ALKALINE PHOSPHATASE 72 Units/L (46-116); ASPARTATE AMINO TRANSFERASE 19 Units/L (15-37); BLOOD UREA NITROGEN 21 mg/dL (7-18); CALCIUM 8.9 mg/dL (8.5-10.1); CARBON DIOXIDE 29.3 mmol/L (21-32); CHLORIDE 103 mmol/L (98-107); COR CA(FOR HYPOALB) 9.7 mg/dL (8.5-10.1); COR NA(FOR HYPERGLY) 143 mmol/L (136-145); CREATININE 1.11 mg/dL (0.55-1.02); SODIUM 141 mmol/L (136-145); TOTAL PROTEIN 7.4 g/dL (6.4-8.2); eGFR NON BLACK RACES 50 (>60)
--- NOTE | 2019-12-09 07:02 | CT ---
HISTORYDegenerative disc disease, left lower extremity weaknessSTUDYCT lumbar spine without contrastTechnique: Axial noncontrast images with coronal and sagittal reformats. Dose reduction procedures were used with mA/kv adjusted for body size.COMPARISONNoneFINDINGSThe alignment is normal with the exception of slight retrolisthesis L3 on L4 and minimal anterolisthesis L5 on S1. The vertebral bodies are of average height. No compression fractures are identified. The pedicles, spinous processes, and posterior elements appear intact. The sacrum and SI joints are intact. The disc levels are evaluated as follows:T12-L1 level: No evidence for compressive disc disease. The neural foramina are patent. Mild bilateral facet arthropathy is present.L1-2 level: No evidence for compressive disc disease. The neural foramina are patent. Bilateral facet arthropathy is present.L2-3 level: There is disc degeneration with vacuum phenomenon present. Concentric disc bulging effaces the thecal sac and contributes to mild lateral recess narrowing bilaterally. Bilateral facet arthropathy is present.L3-4 level: There is slight retrolisthesis L3 on L4. There is disc degeneration with vacuum phenomenon present. There is endplate irregularity involving the inferior endplate of L3 and superior endplate of L4. This is most likely degenerative in origin however an acute discitis cannot be entirely excluded on this examination and further evaluation should include MRI of the lumbar spine with and without contrast. The slight retrolisthesis and concentric disc bulging contributes along with bilateral facet arthropathy to lateral recess and foraminal narrowing bilaterally.L4-5 level: There is concentric disc bulging which effaces the thecal sac and contributes along with ligamentous hypertrophy and facet arthropathy to a significant canal stenosis. There is also a central and left lateral disc protrusion which contributes to relatively severe left lateral recess and foraminal narrowing. The broad-based concentric disc bulging contributes to less significant lateral recess and foraminal narrowing on the right. This area should be further evaluated with MRI. Considering the history of left lower extremity weakness expedient MRI should be obtained. If the patient has other symptoms of cauda equina syndrome such as saddle numbness or bowel or bladder dysfunction, immediate MRI and neuro surgical consultation recommended.L5-S1 level: There is slight anterolisthesis L5 on S1. There is broad-based disc protrusion which effaces the thecal sac and contributes along with bilateral facet arthropathy to relatively severe canal stenosis with lateral recess and foraminal narrowing of a significant degree left greater than right.IMPRESSIONConcentric disc bulging and left lateral disc protrusion at L4-5 contributing to a significant spinal canal stenosis and severe left lateral recess and foraminal narrowing. Considering the history of left lower extremity weakness, MRI is recommended for further evaluation. If the patient has symptoms of cauda equina syndrome such as saddle numbness, bowel or bladder dysfunction, immediate MRI and neuro surgical consultation should be obtained.Disc degeneration and endplate irregularity at L3-4 which is most likely degenerative in origin however an acute discitis cannot be excluded on this examination. MRI of the lumbar spine with and without contrast is recommended for further evaluation.Evaluation of the other disc levels given in detail aboveElectronically signed by: KRYS MAHER (Dec 09, 2019 07:01:34)
[2019-12-09] MEDS: SYNTHROID 50 mcg TAB PO SCH (07:09)
[2019-12-09] MEDS ORDERED: ALLEGRA ONE (08:32)
[2019-12-09] MEDS: ALDACTONE TAB 25 MG PO SCH (08:42)
[2019-12-09] MEDS: ALLEGRA PO SCH (08:42)
[2019-12-09] MEDS: LASIX PO SCH (08:43)
[2019-12-09] MEDS: CELEXA PO SCH (08:43)
[2019-12-09] MEDS: MICRO K EXTEN CAP 10 MEQ PO SCH (08:43)
[2019-12-09] MEDS: FERROUS GLUCONATE PO SCH (08:44)
[2019-12-09] MEDS: PROTONIX TAB 40 MG PO SCH (08:45)
[2019-12-09] MEDS: SINEMET (PLAIN) 25/100 MG PO SCH (08:45)
[2019-12-09] MEDS: LOVENOX INJ 40 MG SYR SC SCH (08:45)
[2019-12-09] MEDS: ENTRESTO 24/26 MG TAB PO SCH (08:46)
[2019-12-09] MEDS: COREG TAB 12.5 MG PO SCH (08:46)
[2019-12-09] MEDS: ULTRAM PO PRN (08:48)
[2019-12-09] MEDS: PATIENT'S HOME MEDICATION (Sacubitril-Valsartan [Entresto] 1 TAB) PO SCH (08:49)
[2019-12-09] MEDS ORDERED: SOLU-Medrol 125 MG VIAL IVP ONE (09:55)
[2019-12-09] MEDS ORDERED: SOLU-Medrol 125 MG VIAL ONE (12:00)
[2019-12-09] MEDS ORDERED: SOLU-Medrol 40 MG VIAL IVP SCH (14:00)
[2019-12-09 16:17] VITALS: BP 146/61
== END 2019-12-09 17:55 | disposition short-term general hospital (02) ==
LOC: ER 13:56 → MED/SURG 13:56
PROVIDERS: ADMIT Internal Medicine; ATTEND Internal Medicine
DX: R51.9 Headache, unspecified; I11.0 Hypertensive heart disease with heart failure; K21.9 Gastro-esophageal reflux disease without esophagitis; I50.9 Heart failure, unspecified; R42 Dizziness and giddiness; E03.8 Other specified hypothyroidism; I25.10 Atherosclerotic heart disease of native coronary artery without angina pectoris; M19.90 Unspecified osteoarthritis, unspecified site; J44.9 Chronic obstructive pulmonary disease, unspecified; E78.2 Mixed hyperlipidemia; M51.36 Other intervertebral disc degeneration, lumbar region; R94.31 Abnormal electrocardiogram [ECG] [EKG]; R53.1 Weakness; R26.89 Other abnormalities of gait and mobility; I48.20 Chronic atrial fibrillation, unspecified; Z95.0 Presence of cardiac pacemaker; R20.2 Paresthesia of skin